=== PATIENT | female | born 1975 | race Caucasian/White ===

== ENCOUNTER 2023-05-24 10:25 | Outpatient (OUT) | payer OTHER, SELFPAY ==
[2023-05-24 11:26] LABS: Estimated Average Glucose 295 mg/dL; Glycohemoglobin A1C 11.9 % (4.5-6.2)
[2023-05-24 11:31] LABS: Bilirubin Urine NEGATIVE (NEGATIVE); Blood Urine NEGATIVE (NEGATIVE); Clarity Urine CLEAR (CLEAR); Color Urine YELLOW (YELLOW); Glucose Urine UA >=1000 mg/dL (NEGATIVE); Ketones Urine NEGATIVE (NEGATIVE); Leukocyte Esterase Urine TRACE (NEGATIVE); Nitrite Urine POSITIVE (NEGATIVE); Protein Urine NEGATIVE (NEG/TRACE); Specific Gravity Urine 1.025 (1.005-1.025)
[2023-05-24 11:41] LABS: Basophils Absolute Auto 0.1 10^3/uL (0.0-0.1); Basophils Percent Auto 0.5 % (0.2-2.0); Eosinophils Absolute Auto 0.2 10^3/uL (0.0-0.7); Hematocrit 42.1 % (36.0-48.0); Hemoglobin 14.2 g/dL (12.0-16.0); Immature Granulocytes Abs Auto 0.05 10^3/uL (0.00-0.03); Immature Granulocytes Pct Auto 0.5 % (0.0-0.5); Lymphocytes Absolute Auto 1.9 10^3/uL (1.2-3.8); Lymphocytes Percent Auto 20.9 % (20.5-60.0); Mean Corpuscular HGB Conc 33.7 g/dL (29.9-35.2); Mean Corpuscular Hemoglobin 29.2 pg (26.7-34.0); Mean Corpuscular Volume 86.6 fL (81.0-99.0); Mean Platelet Volume 10.3 fL (9.5-13.5); Monocytes Absolute Auto 0.6 10^3/uL (0.3-0.8); Monocytes Percent Auto 6.6 % (1.7-12.0); Neutrophils Absolute Auto 6.4 10^3/uL (1.4-6.5); Neutrophils Percent Auto 69.5 % (43.0-75.0); Platelet Count 204 10^3/uL (150-450); Red Blood Count 4.86 10^6/uL (4.20-5.40); Red Cell Distribution Width 12.4 % (11.0-15.0); White Blood Count 9.3 10^3/uL (4.0-11.0)
[2023-05-24 11:46] LABS: Free T4 0.89 ng/dL (0.76-1.46)
[2023-05-24 12:11] LABS: Alanine Aminotransferase 30 U/L (14-59); Albumin Globulin Ratio 0.9; Albumin Level 3.5 g/dL (3.4-5.0); Alkaline Phosphatase 96 U/L (46-116); Anion Gap 12.2; Aspartate Amino Transferase 16 U/L (15-37); BUN Creatinine Ratio 14.1; Bilirubin Total 0.4 mg/dL (0.2-1.0); Calcium 8.7 mg/dL (8.5-10.1); Chloride 99 mmol/L (98-107); Estimated GFR (African America >60 (>=60); Estimated GFR (Non-African Ame >60 (>=60); Globulin 3.9 g/dL; Glucose 289 mg/dL (74-106); Potassium 4.2 mmol/L (3.5-5.1); Sodium 135 mmol/L (136-145); Thyroid Stimulating Hormone 2.265 uIU/mL (0.358-3.740); Total Protein 7.4 g/dL (6.4-8.2)
== END 2023-05-24 10:26 | disposition home or self-care (01) ==
LOC: LAB 10:30
PROVIDERS: PCP Family Medicine; Visit Provider Family Medicine
DX: E11.65 Type 2 diabetes mellitus with hyperglycemia (principal); R53.82 Chronic fatigue, unspecified; R63.4 Abnormal weight loss; R63.0 Anorexia; E03.9 Hypothyroidism, unspecified
CPT/HCPCS: 36415; 80053; 81003; 83036; 84439; 84443; 85025; 87086; 87150; 87186

== ENCOUNTER 2023-10-12 06:33 | Outpatient (OUT) | payer SELFPAY ==
--- NOTE | 2023-10-12 06:51 | US_ITS ---
The [address] [address] Patient Name: JORDON OVALLE MRN: [id number] date: 1975 Sex: F Assigned Patient Location: US Current Patient Location: US Accession/Order Number: [id number] Exam Date: 10/12/2023 07:05 Report Date: 10/12/2023 08:30 At the request of: LYDIA OSWALD Procedure: US thyroid EXAMINATION: US thyroid HISTORY: Hypothyroidism E03.9 COMPARISON: No relevant comparison available. TECHNIQUE: Sonographic images of the thyroid gland were obtained. FINDINGS: The right thyroid lobe is heterogeneous in echotexture measuring 5.5 x 2.0 x 1.7 cm. 3 focal nodules with a single nodule greater than 1 cm. The thyroid isthmus measures 1.3 mm, heterogeneous with no focal nodule The left thyroid lobe is heterogeneous in echotexture measuring 4.8 x 1.6 x 1.5 cm. Single 6 mm nodule. The most suspicious nodule: Right thyroid lobe: 1.1 x 1.0 x 1.1 cm. Solid, hypoechoic, wide, smooth margins, no calcifications. TR 4 US/US thyroid IMPRESSION: Heterogeneous thyroid gland with a 1.1 cm right thyroid TR 4 nodule. One year follow-up recommended TI-RADS: The [employer] TI-RADS committee's white paper recommendations for thyroid lesions classified as TR4 (moderately suspicious) are listed below: > 1.0 cm. Follow-up ultrasound in 1, 2, 3, and 5 years. > 1.5 cm. FNA. J. Am Nicho Radiol 2017;14:587-595. Electronically authenticated by: BREN DENTON Date: 10/12/2023 08:30
[2023-10-12 07:08] LABS: Basophils Absolute Auto 0.1 10^3/uL (0.0-0.1); Basophils Percent Auto 0.8 % (0.2-2.0); Eosinophils Absolute Auto 0.2 10^3/uL (0.0-0.7); Hematocrit 42.5 % (36.0-48.0); Hemoglobin 14.4 g/dL (12.0-16.0); Immature Granulocytes Abs Auto 0.06 10^3/uL (0.00-0.03); Immature Granulocytes Pct Auto 0.6 % (0.0-0.5); Lymphocytes Percent Auto 21.4 % (20.5-60.0); Mean Corpuscular HGB Conc 33.9 g/dL (29.9-35.2); Mean Corpuscular Hemoglobin 29.1 pg (26.7-34.0); Monocytes Absolute Auto 0.6 10^3/uL (0.3-0.8); Monocytes Percent Auto 6.5 % (1.7-12.0); Neutrophils Absolute Auto 6.4 10^3/uL (1.4-6.5); Neutrophils Percent Auto 68.7 % (43.0-75.0); Platelet Count 182 10^3/uL (150-450); Red Blood Count 4.94 10^6/uL (4.20-5.40); Red Cell Distribution Width 12.1 % (11.0-15.0); White Blood Count 9.3 10^3/uL (4.0-11.0)
[2023-10-12 08:00] LABS: Estimated Average Glucose 303 mg/dL; Glycohemoglobin A1C 12.2 % (4.5-6.2)
[2023-10-12 08:11] LABS: BUN Creatinine Ratio 17.2; Calcium 8.9 mg/dL (8.5-10.1); Carbon Dioxide 28.3 mmol/L (21.0-32.0); Chloride 98 mmol/L (98-107); Estimated GFR (African America >60 (>=60); Estimated GFR (Non-African Ame >60 (>=60); Free T4 1.01 ng/dL (0.76-1.46); Glucose 293 mg/dL (74-106); Potassium 4.3 mmol/L (3.5-5.1); Sodium 135 mmol/L (136-145); Thyroid Stimulating Hormone 4.318 uIU/mL (0.358-3.740)
== END 2023-10-12 06:34 | disposition home or self-care (01) ==
LOC: US 06:34
PROVIDERS: PCP Family Medicine; Visit Provider Family Medicine
DX: E03.9 Hypothyroidism, unspecified (principal); E11.65 Type 2 diabetes mellitus with hyperglycemia; E04.1 Nontoxic single thyroid nodule
CPT/HCPCS: 36415; 76536; 80048; 83036; 84439; 84443; 85025

== ENCOUNTER 2024-01-31 07:14 | Outpatient (OUT) | payer OTHER, SELFPAY ==
--- OUTSIDE RECORDS SUMMARY | 2024-01-31 07:17 | XMS_ITS | CCD ---
Author Organization [facility] Care Team Providers Care Service Plumber Name Role Phone Harris Sindy Jackman Attending Provider MARKER, DR LANE Admitting Unavailable MARKER, DR ALNE Attending Unavailable MARKER, DR LANE Consulting Unavailable OSWALD, DR MIRNA Deras Primary Care Unavailable Jozef Brandt Consulting Unavailable KARASIK, DR KAYE Attending Unavailable KARASIK, DR KAYE Admitting Unavailable BABIN, SALVADOR Consulting Unavailable OSWALD, DR MIRNA Deras Primary Care Unavailable KARASIK, DR KAYE Attending Unavailable KARASIK, DR KAYE Consulting Unavailable KARASIK, DR KAYE Admitting Unavailable OSWALD, DR MIRNA Deras Primary Care Unavailable TYLER GA Consulting Unavailable DARWICH, AICHA Consulting Unavailable KARASIK, DR KAYE Attending Unavailable KARASIK, DR KAYE Consulting Unavailable KARASIK, DR KAYE Admitting Unavailable OSWALD, DR MIRNA Deras Primary Care Unavailable PADRONI, DR BREN Hurley Consulting Unavailable KARASIK, DR KAYE Attending Unavailable KARASIK, DR KAYE Consulting Unavailable KARASIK, DR KAYE Admitting Unavailable OSWALD, DR MIRNA Deras Primary Care Unavailable OSWALD, DR MIRNA Deras Attending Unavailable ZIEBER, DR MANI Chambers Consulting Unavailable OSWALD, DR MIRNA Deras Primary Care Unavailable OSWALD, DR MIRNA Deras Admitting Unavailable OSWALD, DR MIRNA Deras Consulting Unavailable ZIEBER, DR MANI Chambers Consulting Unavailable TREY WARE Admelías Unavailable TREY WARE Attending Unavailable DAREK, DR MIRNA Deras Primary Care Unavailable MATA CHRISTINA Consulting Unavailable Inocencia Huitron Unavailable NO FAMILY, PHYSICIAN Primary Care Provider Unava ilable TOÑO Huitron Attending Provider Inocencia Huitron Attending Unavailable Inocencia Huitron Admitting Unavailable NO FAMILY, PHYSICIAN Primary Care Unavailable Mirna Oswald Unavailable FosterCharlotte garcia Unavailable Allergies Allergy Classification Reported Allergen(s) Allergy Type Date of Onset Reaction(s) Facility (1 source) Acetaminophen / oxyCODONE Drug Allergy 10-12-19 15 [facility] Repository (1 source) alogliptin Drug Allergy [facility] Repository (1 source) Angiotensin Converting Enzyme (Jeff) Inhibitors Drug allergy (disorder) [facility] Repository (1 source) Codeine Drug Allergy 05-05-20 13 [facility] Repository (1 source) Linagliptin Drug Allergy [facility] Repository (1 source) Sulfamethoxazole / Trimethoprim Drug Allergy 05-05-20 13 [facility] Repository (7 sources) alogliptin Drug Allergy Unknown [facility] Other (1 source) Angiotensin-convert ing enzyme inhibitor agent Drug allergy 08-06-20 18 Unknown [facility] Other (7 sources) Codeine Drug Allergy dizziness [facility] Other (7 sources) Linagliptin Drug Allergy 08-06-20 18 Unknown [facility] Other (7 sources) sulfADIAZINE Drug Allergy Comment:Sulfa [facility] Other (7 sources) Sulfamethoxazole / Trimethoprim Drug Allergy vomiting [facility] Other (1 source) Allergies Reconciled Propensity to adverse reactions Unknown [facility] Other (7 sources) JEFF inhibitor use, contraindication Propensity to adverse reactions 08-06-20 18 Comment:advers e rxn/side effects [facility] Other (1 source) patient allergy list reviewed by nurse or physicia Propensity to adverse reactions 01-11-20 Comment:Done [facility] Other Medications Current Medications Medication Drug Class(es) Dates Sig (Normalized) Sig (Original) [id number] 60 actuat albuterol 0.09 mg/actuat metered dose inhaler (10 sources) beta2-Adrenergic Agonist Start: 08-07-2023 take 2 puff(s) by inhalation every four to six hours as needed Albuterol Sulfate HFA 108 (90 Base) MCG/ACT 2 puffs as needed Inhalation every 4-6 hours for 14 days Jul, Active Start: 08-07-2023 take 2 puff(s) by in halation every four to six hours as needed Albuterol Sulfate HFA 108 (90 Base) MCG/ACT 2 puffs as needed Inhalation every 4-6 hours for 14 days Jul, Active Start: 04-19-2023 take 2 puff(s) by in halation every four hours as needed for wheezing Albuterol Sulfate HFA 108 (90 Base) MCG/ACT 2 puffs Inhalation every 4 hrs prn SOB, wheezing for 15 days Apr, Active Start: 04-19-2023 take 2 puff(s) by in halation every four hours as needed for wheezing Albuterol Sulfate HFA 108 (90 Base) MCG/ACT 2 puffs Inhalation every 4 hrs prn SOB, wheezing for 15 days Apr, Not-Taking/PRN Start: 04-19-2023 take 2 puff(s) by in halation every four hours as needed for wheezing Albuterol Sulfate HFA 108 (90 Base) MCG/ACT 2 puffs Inhalation every 4 hrs prn SOB, wheezing for 15 days Apr, Not-Taking dextromethorphan hydrobromide 1.5 mg/ml / pyrilamine maleate 1.5 mg/ml oral solution (1 source) Uncompetitive N-qtnyvl-V-aspartate Receptor Antagonist, Sigma-1 Agonist Start: 08-07-2023 take 10 mL by mouth every eight hours [place] DM 7.5-7.5 MG/5ML 10 mL Orally every 8 hours for 5 days Jul, Active imiquimod (1 source) Start: 06-23-2021 Imiquimod 5% Imiquimod 5%, 1 (one) Application Application applied to affected area once daily at bedtime, leave on for 8 hours, then remove with mild soap # 30, 06/23/2021, Ref. x1. Active External applied to affected area once daily at bedtime, leave on for 8 hours, then remove with mild soap for 0 *Pick strength-form from [employer] for eRX* 14 Jun, 2021 Active Insulin Aspart FlexPen (7 sources) Insulin Aspart FlexPen Active 3 ml insulin detemir 100 unt/ml pen injector (7 sources) Insulin Analog Start: 03-16-2023 Levemir FlexPen 100 UNIT/ML 46 units Subcutaneous daily for 30 days Mar, Active Start: 03-16-2023 Levemir FlexPe n 100 UNIT/ML 38 units Subcutaneous daily for 30 days Mar, Active Levemir FlexTouch U-100 Insuln 100 unit/mL(3 mL) (1 source) Start: 07-06-2022 Levemir FlexTo uch U-100 Insuln 100 unit/mL(3 mL) Levemir FlexTouch U-100 Insuln 100 unit/mL(3 mL), 1 (one) Solution Pen-injector 38 units once daily # 1, 07/06/2022, Ref. x2. Active subcutaneous 38 units once daily for 0 [facility]* Jun, Active levothyroxine (11 sources) l-Thyroxi ne Start: 07-13-2022 take 1 tablet by mouth once daily in the morning Levothyroxine 100mcg levothyroxine 100mcg, 1 Tablet every morning # 90, 07/13/2022, No Refill. Active oral every morning for 90 *Reorder from [employer] for eRx and Interaction Alerts* Jul, Active take 1 tablet by paulina th once daily in the morning Levothyroxine Sodium 100 MCG take 1 tabl et by mouth every morning ON AN EMPTY STOMACH for 90 Active take 1 tablet by paulina th once daily in the morning Synthroid 100 MCG 1 tablet in the mornin g on an empty stomach Orally Once a day Active losartan potassium 25 mg oral tablet (8 sources) Angiotensin 2 Receptor Pretty Start: 07-13-2022 take 1 tablet by mouth once daily losartan 25mg losartan 25mg, 1 (one) Tablet daily # 90, 07/13/2022, No Refill. Active oral daily for 90 *[facility]* Jul, Active Naproxen (7 sources) Nonsteroidal Anti-inflammatory Drug Aleve Active ondansetron 4 mg disintegrating oral tablet (2 sources) Serotonin-3 Receptor Antagonist Start: 10-11-2023 take 1 tablet by mouth three times daily as needed Ondansetron 4 MG 1 tablet on the tongue and allow to dissolve Orally tid prn for 5 Oct, Active OneTouch Ultra (1 source) Start: 02-22-2021 OneTouch Ultra OneTouch Ultra , 1 (one) Each Each two times daily # 180, 02/22/2021, Ref. x3. Active In Vitro two times daily for 0 *Pick strength-form from [employer] for eRX* Feb, Active predniSONE 20 mg oral tablet (8 sources) Start: 08-07-2023 take 1 tablet by mouth every twelve hours prednisone 20 MG 1 tablet Orally BID for 5 Jul, Active Start: 04-19-2023 predniSONE 20 MG take 2 tabs po daily x 5 days Orally Once a day for 5 days Apr, Not-Taking/PRN Completed/Discontinued Medications Medication Drug Class(es) Dates Sig (Normalized) Sig (Original) amoxicillin 875 mg / clavulanate 125 mg oral tablet (7 sources) Penicillin-class Antibacterial Start: 08-21-2022 take 1 tablet by mouth twice daily as needed Amoxicillin-Pot Clavulanate 875-125 MG amoxicillin-pot clavulanate 875-125mg, 1 Tablet 2 times per day # 14, 08/21/2022, No Refill. Active Oral 2 times per day for 0 Aug, Not-Taking/PRN benzonatate 200 mg oral capsule (7 sources) Non-narcotic Antitussive Start: 04-19-2023 take 1 capsule by mouth three times daily as needed for cough Benzonatate 200 MG 1 capsule Orally Three times a day prn cough for 10 days Apr, Not-Taking/PRN ciprofloxacin 250 mg oral tablet (6 sources) Quinolone Antimicrobial Start: 05-25-2023 take 1 tablet by mouth every twelve hours Ciprofloxacin HCl 250 MG 1 tablet Orally every 12 hrs for 5 day(s) May, Not-Taking/PRN doxycycline hyclate 100 mg oral capsule (7 sources) Tetracycline-class Drug Start: 03-03-2021 take 2 capsules by mouth once as needed Doxycycline Hyclate 100 MG 2 capsules Orally Once for 1 days Feb, Not-Taking/PRN oseltamivir 75 mg oral capsule (7 sources) Neuraminidase Inhibitor Start: 08-21-2022 take 1 capsule by mouth twice daily as needed Tamiflu 75mg Tamiflu 75mg, 1 Capsule 2 times per day # 10, 08/21/2022, No Refill. Active oral 2 times per day for 5 *Pick strength-form from [employer] for eRX* Aug, Not-Taking/PRN Vitamin D (Cholecalciferol) 50 MCG(1999 UT) (7 sources) Start: 01-07-2021 take 1 capsule by mouth once daily as needed Vitamin D (Cholecalciferol) 50 MCG(1999 UT) Vitamin D (Cholecalciferol) 50 MCG(1999 UT), 1 (one) Capsule Capsule daily # 90, 01/07/2021, Ref. x3. Active Oral daily for 0 *Pick strength-form from [employer] for eRX* 30 Dec, 2020 Not-Taking/PRN Start: 01-07-2021 take 1 capsule by mo uth once daily Vitamin D (Cholecalciferol) 50 MCG(1999 UT) Vitamin D (Cholecalciferol) 50 MCG(1999 UT), 1 (one) Capsule Capsule daily # 90, 01/07/2021, Ref. x3. Active Oral daily for 0 *Pick strength-form from [employer] for eRX* Dec, Not-Taking Problems Active Problems Problem Classification Problem Date Documented Da te Episodic/Chronic Abdominal pain (12 sources) Pelvic and perineal pain; Translations: [Pelvic and perineal pain] Onset: 07-04-2021 Episodic Acute bronchitis (1 source) Acute bronchitis due to other specified organisms Episodic Chronic obstructive pulmonary disease and bronchiectasis (1 source) Chronic obstructive pulmonary disease, unspecified; Translations: [COPD UNSPECIFIED] Onset: 08-29-2021 Chronic Diabetes mellitus with complications (12 sources) Type 2 diabetes mellitus with hyperglycemia; Translations: [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] Onset: 03-09-2021 Chronic Diabetes mellitus without complication (3 sources) Type 2 diabetes mellitus without complications; Translations: [Type 2 diabetes mellitus without complication] Onset: 08-29-2021 Chronic Esophageal disorders (8 sources) Gastro-esophageal reflux disease without esophagitis; Translations: [Gastroesophageal reflux disease] Onset: 08-29-2021 Chronic Esophageal disorders (1 source) Esophageal disorders; Translations: [Gastro-esophageal reflux disease with esophagitis, without bleeding] Essential hypertension (2 sources) Essential (primary) hypertension; Translations: [Essential hypertension] Onset: 08-29-2021 Chronic Headache; including migraine (1 source) Migraine without aura, not refractory ; Translations: [Migraine, unspecified, not intractable, without status migrainosus] Chronic Immunizations and screening for infectious disease (2 sources) Encounter for screening for human papillomavirus (HPV); Translations: [Contact with and (suspected) exposure to other viral communicable diseases] Onset: 07-01-2021 Episodic Joint disorders and dislocations; trauma-related (1 source) Derangement of knee; Translations: [Unspecified internal derangement of knee] Chronic Malaise and fatigue (7 sources) Fatigue; Translations: [Chronic fatigue, unspecified] Chronic Mood disorders (1 source) Recurrent major depression; Translations: [Major depressive disorder, recurrent, unspecified] Chronic Nausea and vomiting (1 source) Nausea with vomiting, unspecified Episodic Nutritional deficiencies (1 source) Vitamin D deficiency; Translations: [Vitamin D deficiency, unspecified] Chronic Other aftercare (1 source) Other detention (current) drug therapy; Translations: [OTH GLOBAL IMPLEMENTATION MANAGER CURRENT DRUG THERAPY] Onset: 08-29-2021 Episodic Other aftercare (1 source) Long-term current use of drug therapy; Translations: [Other detention (current) drug therapy] Episodic Other aftercare (1 source) History and physical examination, follow-up; Translations: [Encounter for follow-up examination after completed treatment for conditions other than malignant neoplasm] Episodic Other gastrointestinal disorders (1 source) Dysphagia; Translations: [Dysphagia, unspecified] Episodic Other inflammatory condition of skin (1 source) Psoriasis; Translations: [Psoriasis, unspecified] Chronic Other liver diseases (1 source) Chronic nonalcoholic liver disease; Translations: [Other chronic nonalcoholic liver disease] Chronic Other nervous system disorders (1 source) Paresthesia; Translations: [Paresthesia of skin] Episodic Other nutritional; endocrine; and metabolic disorders (1 source) Obese class II; Translations: [Body mass index (BMI) 38.0-38.9, adult] Chronic Other nutritional; endocrine; and metabolic disorders (6 sources) Decrease in appetite; Translations: [Anorexia] Episodic Other nutritional; endocrine; and metabolic disorders (1 source) Abnormal weight loss Episodic Other nutritional; endocrine; and metabolic disorders (1 source) Anorexia Episodic Other screening for suspected conditions (not mental disorders or infectious disease) (7 sources) Encounter for screening for malignant neoplasm of cervix; Translations: [Encounter for screening mammogram for malignant neoplasm of breast] Onset: 03-08-2021 Resolved: 06-23-2021 Episodic Other upper respiratory infections (1 source) Chronic sinusitis; Translations: [Chronic sinusitis, unspecified] Chronic Residual codes; unclassified (1 source) Obstructive sleep apnea syndrome; Translations: [Obstructive sleep apnea] Chronic Residual codes; unclassified (1 source) Acquired absence of other specified parts of digestive tract; Translations: [ACQ ABSENCE OTH PART DIGESTV TRACT] Onset: 08-29-2021 Episodic Residual codes; unclassified (1 source) Tobacco user; Translations: [Nondependent tobacco use disorder] Episodic Residual codes; unclassified (1 source) Other general symptoms and signs Episodic Substance-related disorders (1 source) Nicotine dependence, cigarettes, uncomplicated; Translations: [NICOTINE DEPEND CIGARETTES UNCOMP] Onset: 05-23-2021 Chronic Thyroid disorders (12 sources) Hypothyroidism, unspecified; Translations: [Simple goiter] Onset: 08-29-2021 Chronic Unclassified (1 source) Acute cough; Translations: [Acute cough] Onset: 04-19-2023 Urinary tract infections (1 source) Acute cystitis without hematuria Episodic Viral infection (6 sources) Anogenital (venereal) warts; Translations: [Condyloma acuminatum of the anogenital region] Onset: 08-08-2021 Episodic Past or Other Problems Problem Classification Problem Date Documented Da te Episodic/Chronic Anxiety disorders (1 source) Anxiety disorder; Translations: [Anxiety disorder, unspecified] Onset: 08-06-2018 Resolved: 06-22-2021 Chronic E Codes: Natural/environment (1 source) Exposure to other animate mechanical forces, initial encounter; Translations: [EXPOS OTH ANIMATE MECH FORCES INIT] Onset: 03-09-2021 Episodic Headache; including migraine (1 source) Headache; Translations: [Headache, unspecified] Onset: 08-06-2018 Resolved: 06-22-2021 Episodic Lymphadenitis (1 source) Generalized enlarged lymph nodes; Translations: [GENERALIZED ENLARGED LYMPH NODES] Onset: 03-09-2021 Episodic Malaise and fatigue (1 source) Fatigue; Translations: [Other fatigue] Onset: 08-06-2018 Episodic Menstrual disorders (1 source) Amenorrhea; Translations: [Amenorrhea, unspecified] Onset: 08-06-2018 Resolved: 06-22-2021 Chronic Other aftercare (1 source) snf (current) use of insulin; Translations: [GLOBAL IMPLEMENTATION MANAGER CURRENT USE OF INSULIN] Onset: 05-23-2021 Episodic Other lower respiratory disease (3 sources) Cough; Translations: [COUGH] Onset: 05-20-2021 Episodic Other lower respiratory disease (1 source) Shortness of breath; Translations: [SHORTNESS OF BREATH] Onset: 05-23-2021 Episodic Other lower respiratory disease (1 source) Snoring; Translations: [Snoring] Onset: 08-06-2018 Resolved: 06-22-2021 Episodic Other lower respiratory disease (1 source) Cough; Translations: [Cough, unspecified] Onset: 08-06-2018 Resolved: 06-22-2021 Episodic Other non-traumatic joint disorders (1 source) Arthralgia of the lower leg; Translations: [Pain in joint, lower leg] Onset: 08-06-2018 Resolved: 06-22-2021 Episodic Other nutritional; endocrine; and metabolic disorders (1 source) Body mass index 40+ - severely obese; Translations: [Body Mass Index 40.0-44.9, adult] Onset: 08-06-2018 Resolved: 06-22-2021 Chronic Other nutritional; endocrine; and metabolic disorders (1 source) Obesity; Translations: [Obesity, unspecified] Onset: 08-06-2018 Resolved: 06-22-2021 Chronic Other skin disorders (3 sources) Localized swelling, mass and lump, neck; Translations: [LOCALIZED SWELLING MASS AND LUMP NECK] Onset: 03-07-2021 Episodic Other skin disorders (1 source) Alopecia; Translations: [Nonscarring hair loss, unspecified] Onset: 08-06-2018 Resolved: 06-22-2021 Episodic Superficial injury; contusion (1 source) Other superficial bite of unspecified part of neck, initial encounter; Translations: [OTH SUP BITE UNS PART NECK INIT ENC] Onset: 06-30-2021 Episodic Unclassified (1 source) Contact with and (suspected) exposure to covid-19 Z20.822 Unclassified (1 source) Acute cough R05.1 Viral infection (3 sources) COVID-19; Translations: [Disease caused by 2019-nCoV] Onset: 05-23-2021 Results Test Name Value Interpretation Reference Range Facility COVID + FLU Quick Testingon 08-07-2023 SARS-CoV-2 (COVID-19) RNA ANKIT+probe Ql (Unsp spec) Positive [facility] Other COVID + FLU Quick Testing Negative [employer] [facility] Other COVID + FLU Quick Testingon 04-19-2023 SARS-CoV-2 (COVID-19) RNA ANKIT+probe Ql (Unsp spec) Negative [employer] [facility] Other COVID + FLU Quick Testing Negative [employer] Other XR chest 2V*on 04-19-2023 XR chest 2V* [facility] Main [place] [address] [place] [address] XRay Report Signed Patient: Jordon Ovalle MR#: [id number] : 1975 Acct:[id number] Age/Sex: 47 / F ADM Date: 04/19/23 Loc: [facility] Room: Type: [facility] Attending Dr: Inocencia Huitron APRN Copies to: Inocencia Huitron APRN Ordering Provider: Inocencia Huitron APRN Date of Service: 04/19/23 XR/XR chest 2V*: COUGH Chest 2 views CLINICAL HISTORY: Productive cough, shortness of breath, wheezing, night sweats for 5 days. COMPARISON: None FINDINGS: The lung volumes. Heart is normal in size. No consolidation pneumothorax pleural effusion or free air. XR/XR chest 2V* IMPRESSION: NO ACUTE CARDIOPULMONARY ABNORMALITY. Impression dictated by: Jordon Salvador Jr., D.O.04/19/2023 2:53 PM Dictation Location: [place] [address] Transcribed By: [facility] 04/19/23 [facility] Dictated By: Jordon Salvador Jr, DO 04/19/23 1451 Signed By: 04/19/23 1453 Normal [facility] XR chest 2V* [facility] Other XR chest 2V* [facility] Main [facility] [employer] Other XR chest 2V* [address] [facility] [place] Other XR chest 2V* ALICE Baez [address] [facility] [place] Other XR chest 2V* XRay Report [facility] [place] Other XR chest 2V* Signed [facility] [place] Other XR chest 2V* Patient: Jordon Ovalle MR#: [id number] [facility] [place] Other XR chest 2V* : 1975 Acct:[id number] [facility] [place] Other XR chest 2V* Age/Sex: 47 / F ADM Date: 04/19/23 [facility] [place] Other XR chest 2V* Loc: [facility] Room: Ty pe: REG CLI [facility] [place] Other XR chest 2V* Attending Dr: Inocencia Huitron [facility] [employer] Other XR chest 2V* Copies to: Inocencia Huitron APRN [place] [employer] Other XR chest 2V* Ordering Provider: Inocencia Huitron PUBLISHING DIRECTOR [place] [employer] Other XR chest 2V* Date of Service: 04/19/23 [place] [employer] Other XR chest 2V* XR/XR chest 2V*: COUGH [employer] Other XR chest 2V* Chest 2 views [facility] [employer] Other XR chest 2V* CLINICAL HISTORY: Productive cough, shortness of breath, wheezing, night sweats for 5 days. [employer] Other XR chest 2V* COMPARISON: None [employer] Other XR chest 2V* FINDINGS: [employer] Other XR chest 2V* The lung volumes. He art is normal in size. No consolidation pneumothorax pleural effusion or free [employer] Other XR chest 2V* air. [employer] Other XR chest 2V* XR/XR chest 2V* [facility] Other XR chest 2V* IMPRESSION: [employer] Other XR chest 2V* NO ACUTE CARDIOPULMONARY ABNORMALITY. [employer] Other XR chest 2V* Impression dictated by: Jordon Salvador Jr., Billie04/19/2023 2:53 PM [employer] Other XR chest 2V* Dictation Location: [id number] [employer] Other XR chest 2V* Transcribed By: PWS 04/19/23 [facility] [employer] Other XR chest 2V* Dictated By: Jordon Salvador Jr DO 04/19/23 [facility] [employer] Other XR chest 2V* Signed By: [employer] Other XR chest 2V* 04/19/23 [facility] [employer] Other POINT OF CARE GLUCOSEon 07-12 Glucose [Mass/Vol] 193 mg/dL Critically high 74-106 [facility] Comment on above: Performed By: #### P OCGLUC #### [facility] [address] [place] [address] [address] Brock Tovar PREG HCG QUALon 08-08-2021 , QUAL Negative Normal NEGATIVE [facility] Comment on above: Performed By: #### P REG #### [facility] [address] [address] [address] Brock Tovar PROF CHEM 8 (BAS METB)on Anion gap [Moles/Vol] 12.5 mmol/L Normal [facility] Comment on above: Performed By: #### B MP #### [facility] [address] [place] [address] Dr. Brock Tovar Calcium [Mass/Vol] 9.2 mg/dL Normal 8.4-10.2 [facility] Comment on above: Performed By: #### B MP #### [facility] [address] [place] [address] Dr. Brock Tovar Chloride [Moles/Vol] 100 mmol/L Normal 98-107 [facility] Comment on above: Performed By: #### B MP #### [facility] [address] [place] [address] Dr. Brock Tovar CO2 [Moles/Vol] 28.5 mmol/L Normal 22.0-30.0 [facility] Comment on above: Performed By: #### B MP #### [facility] [address] [place] [address] Dr. Brock Tovar Creatinine [Mass/Vol] 0.52 mg/dL Normal 0.52-1.04 [facility] Comment on above: Performed By: #### B MP #### [facility] [address] [place] [address] Dr. Brock Tovar EGFR-AF NICARAGUAN >60 Normal >=[address] [facility] Comment on above: Performed By: #### B MP #### [facility] [address] [place] [address] Dr. Brock Tovar EGFR-NON AF NICARAGUAN >60 Normal >=60 [facility] Comment on above: Performed By: #### B MP #### [facility] [address] [place] [address] Dr. Brock Tovar Glucose [Mass/Vol] 167 mg/dL Critically high 74-106 [facility] Comment on above: Performed By: #### B MP #### [facility] [address] [address] [address] Brock Tovar Potassium [Moles/Vol] 4.0 mmol/L Normal 3.4-5.0 [facility] Comment on above: Performed By: #### B MP #### [facility] [address] [address] [address] Brock Tovar Sodium [Moles/Vol] 137 mmol/L Normal 137-145 [facility] Comment on above: Performed By: #### B MP #### [facility] [address] [address] [address] Brock Tovar Urea nitrogen [Mass/Vol] 11.0 mg/dL Normal 7.0-17.0 [facility] Comment on above: Performed By: #### B MP #### [facility] [address] [address] [address] Brock Tovar Urea nitrogen/Creatini ne [Mass ratio] 21.2 mg/mg Normal [facility] Comment on above: Performed By: #### B MP #### [facility] [address] [address] [address] Brock oTvar US PELVIS AND TRANSVAGon US PELVIS AND TRANSVAG EXAMINATION: US PELVIS AND TRANSVAG HISTORY: Pelvic and perineal pain COMPARISON: No relevant comparison available. FINDINGS: Transabdominal and transvaginal images The uterus is normal in size, contour and echotexture measuring 6.8 x 3.4 x 4.7 cm. Anteverted, anteflexed. Endometrium measures 3 mm, normal. The right ovary is normal in appearance measuring 2.7 x 1.9 x 2.7 cm. Normal resistive index of 0.6. The left ovary is normal in appearance measuring 2.8 x 2.0 x 2.7 cm. Normal resistive index of 0.5. No free fluid IMPRESSION: Normal exam Electronically authenticated by: BREN DENTON Date: 2021-07-04 16:09 Normal [facility] PAP ACOG PANEL 2: 30 to 65on 06-27-2021 . . Normal [facility] Comment on above: Result Comment: Perf ormed at: WB Performed By: #### [id number] #### [facility] [address] [address] [address] Brock Tovar Age Gdln ACOG Testing 30-65 Normal [facility] Comment on above: Performed By: #### [id number] #### [facility] [address] [address] [address] Brock Tovar DIAGNOSIS: Comment Normal [facility] Comment on above: Result Comment: NEGA TIVE FOR INTRAEPITHELIAL LESION OR MALIGNANCY. Performed at: WB Performed By: #### [id number] #### [facility] [address] [address] [address] Brock Tovar HPV Aptima Negative Normal Negative [facility] Comment on above: Result Comment: This nucleic acid amplification test detects fourteen high-risk HPV types (16,18,31,33,35,39,45,51,52,56,58,59,66,68) without differentiation. Performed at: =G Performed By: #### [id number] #### [facility] [address] [address] [address] Brock Toavr Methodology: Comment Normal [facility] Comment on above: Result Comment: This liquid based ThinPrep(R) pap test was screened with the use of an image guided system. Performed at: WB Performed By: #### [id number] #### [facility] [address] [place] [address] Dr. Brock Tovar Note: Comment Normal [facility] Comment on above: Result Comment: The Pap smear is a screening test designed to aid in the detection of premalignant and malignant conditions of the uterine cervix. It is not a diagnostic procedure and should not be used as the sole means of detecting cervical cancer. Both false-positive and false-negative reports do occur. . Performed at: WB Performed By: #### [id number] #### [facility] [address] [address] [address] Brock Tovar Performed by: Comment Normal [facility] Comment on above: Result Comment: Cortez Tolliver, Boat Deckhand (ASCP) Performed at: WB Performed By: #### [id number] #### [facility] [address] [place] [address] Dr. Brock Tovar Specimen adequacy: Comment Normal [facility] Comment on above: Result Comment: Sati sfactory for evaluation. Endocervical and/or squamous metaplastic cells (endocervical component) are present. Performed at: WB Performed By: #### [id number] #### [facility] [address] [place] [address] Dr. Brock Tovar CBC AUTO DIFFon 05-20-2021 BASO # 0.0 103/ul Normal 0.0-0.1 [facility] Comment on above: Performed By: #### C BC #### [facility] [address] [place] [address] Sixto Liv Basophils/100 WBC (Bld) 0.3 % Normal 0.2-2.0 [facility] Comment on above: Performed By: #### C BC #### [facility] [address] [place] [address] Sixto Liv EO # 0.1 103/ul Normal 0.0-0.7 [facility] Comment on above: Performed By: #### C BC #### [facility] [address] [place] [address] Sixto Liv Eosinophils/100 WBC (Bld) 1.4 % Normal 0.9-7.0 [facility] Comment on above: Performed By: #### C BC #### [facility] [address] [place] [address] Sixto Liv Erythrocyte distribution width (RBC) [Ratio] 12.9 % Normal 11.0-15.0 [facility] Comment on above: Performed By: #### C BC #### [facility] [address] [place] [address] Sixto Liv Hematocrit (Bld) [Volume fraction] 41.0 % Normal 36.0-48.0 [facility] Comment on above: Performed By: #### C BC #### [facility] [address] [place] [address] Sixto Liv Hemoglobin (Bld) [Mass/Vol] 13.5 g/dL Normal 12.0-16.0 [facility] Comment on above: Performed By: #### C BC #### [facility] [address] [id number] Sixtotam Peck IG # 0.08 10e3/ul Critically high 0.00-0.03 [facility] Comment on above: Performed By: #### C BC #### [facility] [address] [id number] Sixto Liv IG % 0.8 % Critically high 0.0-0.5 [facility] Comment on above: Performed By: #### C BC #### [facility] [address] [id number] Sixto Liv LYMPH # 1.3 103/ul Normal 1.2-3.8 [facility] Comment on above: Performed By: #### C BC #### [facility] [address] [place] [address] Sixto Peck Lymphocytes/100 WBC (Bld) 12.8 % Critically low 20.5-60.0 [facility] Comment on above: Performed By: #### C BC #### [facility] [address] [place], [place] [id number] Sixto Peck MANUAL DIFF REQ NO Normal [facility] Comment on above: Performed By: #### C BC #### [facility] [address] [place], [place] [id number] Sixtotam Peck MCH (RBC) [Entitic mass] 28.7 pg Normal 26.7-34.0 [facility] Comment on above: Performed By: #### C BC #### [facility] [address] [place], [place] [id number] Sixtotam Peck MCHC (RBC) [Mass/Vol] 32.9 g/dL Normal 29.9-35.2 [facility] Comment on above: Performed By: #### C BC #### [facility] [address] [id number] Sixto Liv MCV (RBC) [Entitic vol] 87.2 fL Normal 81.0-99.0 [facility] Comment on above: Performed By: #### C BC #### [facility] [address] [place], [place] [address] Sixto Liv MONO # 0.7 103/ul Normal 0.3-0.8 [facility] Comment on above: Performed By: #### C BC #### [facility] [address] [place], [place] [address] Sixto Liv Monocytes/100 WBC (Bld) 7.0 % Normal 1.7-12.0 [facility] Comment on above: Performed By: #### C BC #### [facility] [address] [place], [place] [id number] Sixto Liv NEUT # 8.0 103/ul Critically high 1.4-6.5 [facility] Comment on above: Performed By: #### C BC #### [facility] [address] [place], [place] [id number] Sixto Liv Neutrophils/100 WBC (Bld) 77.7 % Critically high 43.0-75.0 [facility] Comment on above: Performed By: #### C BC #### [facility] [address] [place], [place] [id number] Sixto Liv Platelet mean volume (Bld) [Entitic vol] 10.1 fL Normal 9.5-13.5 [facility] Comment on above: Performed By: #### C BC #### [facility] [address] [place], [place] [id number] Sixto Liv PLT 157 103/ul Normal 150-450 [facility] Comment on above: Performed By: #### C BC #### [facility] [address] [place], [place] [id number] Sixto Liv RBC 4.70 106/ul Normal 4.20-5.40 [facility] Comment on above: Performed By: #### C BC #### [facility] [address] [place], [place] [id number] Sixto Liv WBC 10.3 103/ul Normal 4.0-11.0 [facility] Comment on above: Performed By: #### C BC #### [facility] [address] [place], [place] [id number] Sixto Liv D-DIMERon 09-10-2021 D-DIMER 0.48 mg/L FEU Normal 0.19-0.50 [facility] Comment on above: Performed By: #### D DIM #### [facility] [address] [place] [address] Sixto Peck D-DIMER COMMENTS SEE BELOW Normal [facility] Comment on above: Result Comment: Incr eases in D-Dimer concentration observed with thromboembolic events can be variable due to localization, size, and age of the thrombus. Therefore, a thromboembolic event cannot be diagnosed with certainty on the basis of the reference range. D-Dimers may also be elevated for a variety of disorders including: advanced age, , coronary disease, cancer, liver disease, infection, inflammation, hematoma, DIC, trauma, post-surgery, diabetes, thrombolytic or anticoagulant therapy, stress, and generalized hospitalization. Performed By: #### D DIM #### [facility] [address] [place] [address] Sixto Pcek PROF 14(COMP METB)on 021 Albumin [Mass/Vol] 3.5 g/dL Normal 3.5-5.0 [facility] Comment on above: Performed By: #### C BC #### [facility] [address] [place], [place] [id number] Sixto Peck Albumin/Globulin [Mass ratio] 0.9 {ratio} Normal [facility] Comment on above: Performed By: #### C BC #### [facility] [address] [place] [address] Sixto Peck ALP [Catalytic activity/Vol] 100 U/L Normal 38-126 [facility] Comment on above: Performed By: #### C BC #### [facility] [address] [place], [place] [id number] Sixto Peck ALT [Catalytic activity/Vol] 35 U/L Normal 9-52 [facility] Comment on above: Performed By: #### C BC #### [facility] [address] [place] [address] Sixto Peck Anion gap [Moles/Vol] 12.1 mmol/L Normal [facility] Comment on above: Performed By: #### C BC #### [facility] [address] [phone] Sixto Liv AST [Catalytic activity/Vol] 16 U/L Normal 14-36 [facility] Comment on above: Performed By: #### C BC #### [facility] [address] [phone] Sixto Liv Bilirubin [Mass/Vol] 0.4 mg/dL Normal 0.2-1.3 [facility] Comment on above: Performed By: #### C BC #### [facility] [address] [place] [address] Sixto Liv Calcium [Mass/Vol] 8.6 mg/dL Normal 8.4-10.2 [facility] Comment on above: Performed By: #### C BC #### [facility] [address] [place] [address] Sixto Liv Chloride [Moles/Vol] 99 mmol/L Normal 98-107 [facility] Comment on above: Performed By: #### C BC #### [facility] [address] [place], [place] [id number] Sixto Liv CO2 [Moles/Vol] 28.6 mmol/L Normal 22.0-30.[address] [facility] Comment on above: Performed By: #### C BC #### [facility] [address] [place], [place] [id number] Sixto Liv Creatinine [Mass/Vol] 0.60 mg/dL Normal 0.52-1.04 [facility] Comment on above: Performed By: #### C BC #### [facility] [address] [place], [place] [id number] Sixto Liv EGFR-AF NICARAGUAN >60 Normal >=[address] [facility] Comment on above: Performed By: #### C BC #### [facility] [address] [place], [place] [id number] Sixto Liv EGFR-NON AF NICARAGUAN >60 Normal >=60 [facility] Comment on above: Performed By: #### C BC #### [facility] [address] [place], [place] [id number] Sixto Liv Globulin (S) [Mass/Vol] 3.8 g/dL Normal [facility] Comment on above: Performed By: #### C BC #### [facility] [address] [phone] Sixto Liv Glucose [Mass/Vol] 262 mg/dL Critically high 74-106 [facility] Comment on above: Performed By: #### C BC #### [facility] [address] [phone] Sixto Liv Potassium [Moles/Vol] 3.7 mmol/L Normal 3.4-5.0 [facility] Comment on above: Performed By: #### C BC #### [facility] [address] [phone] Sixto Liv Protein [Mass/Vol] 7.3 g/dL Normal 6.1-8.2 [facility] Comment on above: Performed By: #### C BC #### [facility] [address] [place], [place] [id number] Sixto Liv Sodium [Moles/Vol] 136 mmol/L Critically low 137-145 [facility] Comment on above: Performed By: #### C BC #### [facility] [address] [phone] Sixto Liv Urea nitrogen [Mass/Vol] 6.0 mg/dL Critically low 7.0-17.0 [facility] Comment on above: Performed By: #### C BC #### [facility] [address] [place], [place] [id number] Sixto Liv Urea nitrogen/Creatini ne [Mass ratio] 10.0 mg/mg Normal [facility] Comment on above: Performed By: #### C BC #### [facility] [address] [place], [place] [address] Sixto Liv TROPONIN, HIGH SENSITIVITYon 05-20-2021 HSTROP <4.0 Normal 4.0-35.5 [facility] Comment on above: Result Comment: CUT- OFF POINTS HAVE BEEN ESTABLISHED BASED ON THE FOURTH UNIVERSAL DEFINITIONS OF MYOCARDIAL INFARCTION. THE UPPER REFERENCE LIMIT (URL) OF TROPONIN, DEFINED THE 99TH PERCENTILE OF cTnI DISTRIBUTION IN A REFERENCE POPULATION, HAS BEEN CONFIRMED THE DECISION THRESHOLD FOR AR DIAGNOSIS. Performed By: #### C BC #### [facility] [address] [place], [place] [id number] Sixto Liv XR CHEST 1 Von 05-20-2021 XR CHEST 1 V EXAM: XR CHEST 1 V 2021 11:51 PM EDT OH001 CLINICAL STATEMENT: SHORTNESS OF BREATH COMPARISON: 05/01/2020 TECHNIQUE: Single AP radiograph of the chest is submitted. FINDINGS: There is no acute airspace disease. The cardiac silhouette is normal. The costophrenic recesses are sharp. No pneumothorax. The bony elements are unremarkable. IMPRESSION: No acute cardiopulmonary process. FOLLOW-UP: Follow-up as clinically indicated. Electronically authenticated by: JOZEF BRANDT Date: 2021-05-20 01:48 Normal [facility] CBC AUTO DIFFon 03-07-2021 BASO # 0.1 103/ul Normal 0.0-0.1 [facility] Comment on above: Performed By: #### C BC #### [facility] [address] [place] [address] Sixto Liv Basophils/100 WBC (Bld) 0.4 % Normal 0.2-2.0 [facility] Comment on above: Performed By: #### C BC #### [facility] [address] [place] [address] Sixto Liv EO # 0.2 103/ul Normal 0.0-0.7 [facility] Comment on above: Performed By: #### C BC #### [facility] [address] [place] [address] Sixto Liv Eosinophils/100 WBC (Bld) 1.4 % Normal 0.9-7.0 [facility] Comment on above: Performed By: #### C BC #### [facility] [address] [place], [place] [id number] Sixto Liv Erythrocyte distribution width (RBC) [Ratio] 12.5 % Normal 11.0-15.0 [facility] Comment on above: Performed By: #### C BC #### [facility] [address] [place], [place] [address] Sixto Liv Hematocrit (Bld) [Volume fraction] 43.3 % Normal 36.0-48.0 [facility] Comment on above: Performed By: #### C BC #### [facility] [address] [place], [place] [id number] Sixto Peck Hemoglobin (Bld) [Mass/Vol] 14.4 g/dL Normal 12.0-16.0 [facility] Comment on above: Performed By: #### C BC #### [facility] [address] [place], [place] [address] Sixtotam Peck IG # 0.07 10e3/ul Critically high 0.00-0.03 [facility] Comment on above: Performed By: #### C BC #### [facility] [address] [place] [address] Sixto Peck IG % 0.6 % Critically high 0.0-0.5 [facility] Comment on above: Performed By: #### C BC #### [facility] [address] [place] [address] Sixto Peck LYMPH # 2.0 103/ul Normal 1.2-3.8 [facility] Comment on above: Performed By: #### C BC #### [facility] [address] [place] [address] Sixto Peck Lymphocytes/100 WBC (Bld) 16.7 % Critically low 20.5-60.0 [facility] Comment on above: Performed By: #### C BC #### [facility] [address] [place] [address] Sixto Peck MANUAL DIFF REQ NO Normal [facility] Comment on above: Performed By: #### C BC #### [facility] [address] [place], [place] [id number] Sxito Peck MCH (RBC) [Entitic mass] 28.7 pg Normal 26.7-34.0 [facility] Comment on above: Performed By: #### C BC #### [facility] [address] [place] [address] Sixto Peck MCHC (RBC) [Mass/Vol] 33.3 g/dL Normal 29.9-35.2 [facility] Comment on above: Performed By: #### C BC #### [facility] [address] [place], [place] [address] Sixto Peck MCV (RBC) [Entitic vol] 86.4 fL Normal 81.0-99.0 [facility] Comment on above: Performed By: #### C BC #### [facility] [address] [place], [place] [address] Sixto Peck MONO # 0.7 103/ul Normal 0.3-0.8 [facility] Comment on above: Performed By: #### C BC #### [facility] [address] [place], [place] [address] Sixto Peck Monocytes/100 WBC (Bld) 5.7 % Normal 1.7-12.0 [facility] Comment on above: Performed By: #### C BC #### [facility] [address] [id number] Sixto Bowdenen NEUT # 8.9 103/ul Critically high 1.4-6.5 [facility] Comment on above: Performed By: #### C BC #### [facility] [address] [place], [place] [address] Sixto Peck Neutrophils/100 WBC (Bld) 75.2 % Critically high 43.0-75.0 [facility] Comment on above: Performed By: #### C BC #### [facility] [address] [place], [place] [address] Sixto Peck Platelet mean volume (Bld) [Entitic vol] 10.1 fL Normal 9.5-13.5 [facility] Comment on above: Performed By: #### C BC #### [facility] [address] [place], [place] [address] Sixtotam Bowdenen PLT 206 103/ul Normal 150-450 [facility] Comment on above: Performed By: #### C BC #### [facility] [address] [place], [place] [address] Sixto Bowdenen RBC 5.01 106/ul Normal 4.20-5.40 [facility] Comment on above: Performed By: #### C BC #### [facility] [address] [place], [place] [address] Sixto Peck WBC 11.8 103/ul Critically high 4.0-11.[address] [facility] Comment on above: Performed By: #### C BC #### [facility] [address] [place], [place] [address] W CONon CT NECK ST W CON EXAMINATION: CT NECK ST W CON HISTORY: Mass of neck COMPARISON: No relevant comparison available. TECHNIQUE: Axial, Coronal, and Sagittal CT images created with IV contrast. Dose reduction techniques were achieved by using automated exposure control and/or adjustment of mA and/or kV according to patient size and/or use of iterative reconstruction technique. FINDINGS: NASOPHARYNX: No asymmetry of the fossae of Rosenmuller and torus tubarius. ORAL CAVITY: No visible mass. OROPHARYNX: No asymmetry of the facial and lingual tonsils. HYPOPHARYNX: No mass or other visible lesion. LARYNX: No mass or asymmetry of the vocal cords. SINUSES: No significant fluid or mucosal thickening. NECK GLADS: No visible abnormality of the parotid, submandibular, and thyroid glands. LYMPH NODES: Slightly prominent lymph node in within the lateral right neck between the skin and sternocleidomastoid muscle, 13 x 12 x 8 mm, which corresponds to the skin surface marker localizing the patient's palpable lump. VASCULATURE: No suspicious abnormality. BONES: No significant osseous lesions. OTHER: No additional imaging findings. IMPRESSION: 1. Mildly enlarged subcutaneous lymph node of the right neck corresponding to the patient's palpable lump; likely inflamed. No other lymphadenopathy or subcutaneous edema.. Similar location, but smaller lymph node seen on the left side. Electronically authenticated by: MANI MULLINS Date: 2021-03-07 16:14 Normal [facility] PREG HCG QUALon 03-07-2021 , QUAL Negative Normal NEGATIVE [facility] Comment on above: Performed By: #### C BC #### [facility] [address] [place], [place] [address] Sixto Peck PROF CHEM 8 (BAS METB)on Anion gap [Moles/Vol] 15.3 mmol/L Normal [facility] Comment on above: Performed By: #### C BC #### [facility] [address] [address] Sixto Liv Calcium [Mass/Vol] 9.3 mg/dL Normal 8.4-10.2 [facility] Comment on above: Performed By: #### C BC #### [facility] [address] [address] Sixto Liv Chloride [Moles/Vol] 101 mmol/L Normal 98-107 [facility] Comment on above: Performed By: #### C BC #### [facility] [address] [address] Sixto Liv CO2 [Moles/Vol] 26.5 mmol/L Normal 22.0-30.[address] [facility] Comment on above: Performed By: #### C BC #### [facility] [address] [place] [address] Sixto Liv Creatinine [Mass/Vol] 0.65 mg/dL Normal 0.52-1.04 [facility] Comment on above: Performed By: #### C BC #### [facility] [address] [id number] Sixto Liv EGFR-AF NICARAGUAN >60 Normal >=[address] [facility] Comment on above: Performed By: #### C BC #### [facility] [address] [place], [place] [id number] Sixto Liv EGFR-NON AF NICARAGUAN >60 Normal >=60 [facility] Comment on above: Performed By: #### C BC #### [facility] [address] [place] [address] Sixto Liv Glucose [Mass/Vol] 269 mg/dL Critically high 74-106 [facility] Comment on above: Performed By: #### C BC #### [facility] [address] [place], [place] [id number] Sixto Liv Potassium [Moles/Vol] 3.8 mmol/L Normal 3.4-5.0 [facility] Comment on above: Performed By: #### C BC #### [facility] [address] [place] [address] Sixto Liv Sodium [Moles/Vol] 139 mmol/L Normal 137-145 [facility] Comment on above: Performed By: #### C BC #### [facility] [address] [place], [place] [id number] Sixto Liv Urea nitrogen [Mass/Vol] 10.0 mg/dL Normal 7.0-17.0 [facility] Comment on above: Performed By: #### C BC #### [facility] [address] [place], [place] [id number] Sixto Liv Urea nitrogen/Creatini ne [Mass ratio] 15.4 mg/mg Normal [facility] Comment on above: Performed By: #### C BC #### [facility] [address] [place], [place] [id number] Sixto Liv CBC AUTO DIFFon 03-03-2021 BASO # 0.1 103/ul Normal 0.0-0.1 [facility] Comment on above: Performed By: #### C BC #### [facility] [address] [place], [place] [id number] Sixto Liv Basophils/100 WBC (Bld) 0.5 % Normal 0.2-2.0 [facility] Comment on above: Performed By: #### C BC #### [facility] [address] [place], [place] [id number] Sixto Liv EO # 0.2 103/ul Normal 0.0-0.7 [facility] Comment on above: Performed By: #### C BC #### [facility] [address] [place], [place] [id number] Sixto Liv Eosinophils/100 WBC (Bld) 1.9 % Normal 0.9-7.0 [facility] Comment on above: Performed By: #### C BC #### [facility] [address] [place], [place] [id number] Sixto Liv Erythrocyte distribution width (RBC) [Ratio] 12.4 % Normal 11.0-15.0 [facility] Comment on above: Performed By: #### C BC #### [facility] [address] [place], [place] [id number] Sixto Liv Hematocrit (Bld) [Volume fraction] 43.4 % Normal 36.0-48.0 [facility] Comment on above: Performed By: #### C BC #### [facility] [address] [place], [place] [id number] Sixto Peck Hemoglobin (Bld) [Mass/Vol] 14.6 g/dL Normal 12.0-16.0 [facility] Comment on above: Performed By: #### C BC #### [facility] [address] [place], [place] [id number] Sixtotam Peck IG # 0.08 10e3/ul Critically high 0.00-0.03 [facility] Comment on above: Performed By: #### C BC #### [facility] [address] [place] [address] Sixtotam Peck IG % 0.7 % Critically high 0.0-0.5 [facility] Comment on above: Performed By: #### C BC #### [facility] [address] [place] [address] Sixto Liv LYMPH # 1.9 103/ul Normal 1.2-3.8 [facility] Comment on above: Performed By: #### C BC #### [facility] [address] [place] [address] Sixto Peck Lymphocytes/100 WBC (Bld) 17.2 % Critically low 20.5-60.0 [facility] Comment on above: Performed By: #### C BC #### [facility] [address] [place] [address] Sixto Peck MANUAL DIFF REQ NO Normal [facility] Comment on above: Performed By: #### C BC #### [facility] [address] [place] [address] Sixto Peck MCH (RBC) [Entitic mass] 29.0 pg Normal 26.7-34.0 [facility] Comment on above: Performed By: #### C BC #### [facility] [address] [place] [address] Sixtotam Peck MCHC (RBC) [Mass/Vol] 33.6 g/dL Normal 29.9-35.2 [facility] Comment on above: Performed By: #### C BC #### [facility] [address] [place], [place] [address] Sixto Peck MCV (RBC) [Entitic vol] 86.1 fL Normal 81.0-99.0 [facility] Comment on above: Performed By: #### C BC #### [facility] [address] [id number] Sixto Peck MONO # 0.7 103/ul Normal 0.3-0.8 [facility] Comment on above: Performed By: #### C BC #### [facility] [address] [phone] Sixto Peck Monocytes/100 WBC (Bld) 6.3 % Normal 1.7-12.0 [facility] Comment on above: Performed By: #### C BC #### [facility] [address] [phone] Sixtotam Bowdenen NEUT # 8.2 103/ul Critically high 1.4-6.5 [facility] Comment on above: Performed By: #### C BC #### [facility] [address] [phone] Sixto Peck Neutrophils/100 WBC (Bld) 73.4 % Normal 43.0-75.0 [facility] Comment on above: Performed By: #### C BC #### [facility] [address] [phone] Sixto Peck Platelet mean volume (Bld) [Entitic vol] 10.2 fL Normal 9.5-13.5 [facility] Comment on above: Performed By: #### C BC #### [facility] [address] [phone] Sixto Liv PLT 208 103/ul Normal 150-450 [facility] Comment on above: Performed By: #### C BC #### [facility] [address] [phone] Sixto Liv RBC 5.04 106/ul Normal 4.20-5.40 [facility] Comment on above: Performed By: #### C BC #### [facility] [address] [place], [place] [address] Sixto Liv WBC 11.1 103/ul Critically high 4.0-11.[address] [facility] Comment on above: Performed By: #### C BC #### [facility] [address] [place] [address] Sixto Liv FREE T4on 03-03-2021 Free T4 [Mass/Vol] 0.87 ng/dL Normal 0.78-2.19 [facility] Comment on above: Performed By: #### F T4 #### [facility] [address] [place] [address] Sixto Liv H PYLORI ANTIBODYon 03-03-20 21 H PYLORI Negative Normal NEGATIVE [facility] Comment on above: Performed By: #### C BC #### [facility] [address] [place] [address] Sixto Liv LIPID PROFILEon 03-03-2021 CHOL-HDL RATIO NORM SEE BELOW Normal [facility] Comment on above: Result Comment: 3.3 - 4.4 LOW RISK 4.4 - 7.1 AVERAGE RISK 7.1 - 11.0 MODERATE RISK >11.0 HIGH RISK Performed By: #### C MP, TSH, LIPID #### [facility] [address] [place] [address] Sixto Liv Cholesterol [Mass/Vol] 193 mg/dL Normal <=200 [facility] Comment on above: Performed By: #### C MP, TSH, LIPID #### [facility] [address] [place] [address] Sixto Liv Cholesterol in HDL [Mass/Vol] 35 mg/dL Normal [facility] Comment on above: Performed By: #### C MP, TSH, LIPID #### [facility] [address] [place] [address] Sixto Liv Cholesterol in LDL [Mass/Vol] 106.2 mg/dL Normal [facility] Comment on above: Performed By: #### C MP, TSH, LIPID #### [facility] [address] [place] [address] Sixto Liv Cholesterol.total /Cholesterol in HDL [Mass ratio] 5.5 {ratio} Normal [facility] Comment on above: Performed By: #### C MP, TSH, LIPID #### [facility] [address] [place], [place] [address] Sixto Liv HDL NORMAL > or = 60 mg/dl - LO W CARDIOVASCULAR RISK <40 mg/dl - HIGH CARDIOVASCULAR RISK Normal [facility] Comment on above: Performed By: #### C MP, TSH, LIPID #### [facility] [address] [place], [place] [address] Sixto Liv LDL CALC NORMAL SEE BELOW Normal [facility] Comment on above: Result Comment: <100 mg/dl OPTIMAL 100 - 129 mg/dl NEAR OR ABOVE OPTIMAL 130 - 159 mg/dl BORDERLINE HIGH 160 - 189 mg/dl HIGH >190 mg/dl VERY HIGH Performed By: #### C MP, TSH, LIPID #### [facility] [address], [place] [address] Sixto Liv Triglyceride [Mass/Vol] 259 mg/dL Critically high <=150 [facility] Comment on above: Performed By: #### C MP, TSH, LIPID #### [facility] [address] [place], [place] [address] Sixto Liv VLDL CALC 51.8 mg/dL Normal [facility] Comment on above: Performed By: #### C MP, TSH, LIPID #### [facility] [address] [place], [place] [address] Sixto Liv MG MAMM SCREEN 3D SABINO CADon 03-03-2021 MG MAMM SCREEN 3D SAIBNO CAD Patient: JORDON OVALLE Exam Date: 03/03/2021 : 1975 Gender:F Ordering : DR MIRNA OSWALD M.D. Admission #: [id number] Family : Order #: [id number] CLICK HERE TO VIEW EXAM RADIOLOGY REPORT PROCEDURE: MAMMOGRAM SCREENING 3D BILATERAL CAD COMPARISON: MG MAMM SABINO DIAG W CAD, 11/18/2019. MG MAMM SCREEN SABINO W CAD, 11/27/2017. INDICATIONS: Screening mammography Calculator Name NCI Breast Cancer Risk Assessment Tool 5 Year Breast Cancer Risk 1.10% Lifetime Breast Cancer Risk 11.30% Personal Breast Cancer No Personal Ovarian Cancer No Treatments None Family Cancers None LOCATION: [facility] BREAST COMPOSITION: Almost entirely fatty. FINDINGS: DIAGNOSTIC CATEGORY 2--BENIGN FINDING: RIGHT BREAST: No significant suspicious finding. Stable chronic small mass versus lymph node within the posterior upper-outer quadrant. No significant change has occurred. LEFT BREAST: No significant suspicious finding. No significant change has occurred. RECOMMENDATIONS: ROUTINE MAMMOGRAM AND CLINICAL EVALUATION IN 12 MONTHS. PLEASE NOTE: A NORMAL MAMMOGRAM DOES NOT EXCLUDE THE POSSIBILITY OF BREAST CANCER. A CLINICALLY SUSPICIOUS PALPABLE LUMP SHOULD BE BIOPSIED. Dictated by: Mani Mullins M.D. on 03/03/2021 at 15:35 Approved by: Mani Mullins M.D. on 03/03/2021 at 15:38 Normal [facility] PROF 14(COMP METB)on 021 Albumin [Mass/Vol] 3.5 g/dL Normal 3.5-5.0 [facility] Comment on above: Performed By: #### C MP, TSH, LIPID #### [facility] [address] [place], [place] [id number] Sixto Liv Albumin/Globulin [Mass ratio] 0.9 {ratio} Normal [facility] Comment on above: Performed By: #### C MP, TSH, LIPID #### [facility] [address] [place], [place] [address] Sixto Liv ALP [Catalytic activity/Vol] 92 U/L Normal 38-126 [facility] Comment on above: Performed By: #### C MP, TSH, LIPID #### [facility] [address] [place], [place] [address] Sixto Liv ALT [Catalytic activity/Vol] 37 U/L Normal 9-52 [facility] Comment on above: Performed By: #### C MP, TSH, LIPID #### [facility] [address], [place] [address] Sixto Liv Anion gap [Moles/Vol] 13.9 mmol/L Normal [facility] Comment on above: Performed By: #### C MP, TSH, LIPID #### [facility] [address] [place], [place] [address] Sixto Liv AST [Catalytic activity/Vol] 19 U/L Normal 14-36 [facility] Comment on above: Performed By: #### C MP, TSH, LIPID #### [facility] [address] [phone] Sixto Liv Bilirubin [Mass/Vol] 0.4 mg/dL Normal 0.2-1.3 [facility] Comment on above: Performed By: #### C MP, TSH, LIPID #### [facility] [address] [address] Sixto Liv Calcium [Mass/Vol] 9.0 mg/dL Normal 8.4-10.2 [facility] Comment on above: Performed By: #### C MP, TSH, LIPID #### [facility] [address] [place] [address] Sixto Liv Chloride [Moles/Vol] 101 mmol/L Normal 98-107 [facility] Comment on above: Performed By: #### C MP, TSH, LIPID #### [facility] [address] [place] [address] Sixto Liv CO2 [Moles/Vol] 27.2 mmol/L Normal 22.0-30.[address] [facility] Comment on above: Performed By: #### C MP, TSH, LIPID #### [facility] [address] [place] [address] Sixto Liv Creatinine [Mass/Vol] 0.62 mg/dL Normal 0.52-1.04 [facility] Comment on above: Performed By: #### C MP, TSH, LIPID #### [facility] [address] [place] [address] Sixto Liv EGFR-AF NICARAGUAN >60 Normal >=[address] [facility] Comment on above: Performed By: #### C MP, TSH, LIPID #### [facility] [address] [place], [place] [address] Sixto Liv EGFR-NON AF NICARAGUAN >60 Normal >=60 [facility] Comment on above: Performed By: #### C MP, TSH, LIPID #### [facility] [address] [place] [address] Sixto Liv Globulin (S) [Mass/Vol] 4.0 g/dL Normal [facility] Comment on above: Performed By: #### C MP, TSH, LIPID #### [facility] [address] [id number] Sixto Liv Glucose [Mass/Vol] 204 mg/dL Critically high 74-106 [facility] Comment on above: Performed By: #### C MP, TSH, LIPID #### [facility] [address] [place], [place] [address] Sixto Liv Potassium [Moles/Vol] 4.1 mmol/L Normal 3.4-5.0 [facility] Comment on above: Performed By: #### C MP, TSH, LIPID #### [facility] [address] [place] [address] Sixto Liv Protein [Mass/Vol] 7.5 g/dL Normal 6.1-8.2 [facility] Comment on above: Performed By: #### C MP, TSH, LIPID #### [facility] [address] [place] [address] Sixto Liv Sodium [Moles/Vol] 138 mmol/L Normal 137-145 [facility] Comment on above: Performed By: #### C MP, TSH, LIPID #### [facility] [address] [place] [address] Sixto Liv Urea nitrogen [Mass/Vol] 12.0 mg/dL Normal 7.0-17.0 [facility] Comment on above: Performed By: #### C MP, TSH, LIPID #### [facility] [address] [place] [address] Sixto Liv Urea nitrogen/Creatini ne [Mass ratio] 19.4 mg/mg Normal [facility] Comment on above: Performed By: #### C MP, TSH, LIPID #### [facility] [address] [place], [place] [address] Sixto Liv TSHon 03-03-2021 TSH 1.987 uIU/mL Normal 0.470-4.680 [facility] Comment on above: Performed By: #### C MP, TSH, LIPID #### [facility] [address] [place], [place] [address] Sixto Liv TSH RANGE SEE BELOW Normal [facility] Comment on above: Result Comment: <0.3 4 UIU/ml HYPERTHYROID 0.34-5.60 UIU/ml EUTHYROID >5.60 UIU/ml HYPOTHYROID Performed By: #### C MP, TSH, LIPID #### [facility] [address] [place], [place] [address] Sixto Peck Vital Signs Date Time Vital Sign Value Performing Clinician Facility 10-11-2023 09:30-0500 Body height 154.94 cm Mirna Oswald Other [facility] Other 10-11-2023 09:30-0500 Body mass index (BMI) [Ratio] 35.33 kg/m2 Mirna Oswald Other [facility] Other 10-11-2023 09:30-0500 Body weight 84.82 kg Mirna Oswald Other [facility] Other 10-11-2023 09:30-0500 Diastolic blood pressure 81 mm[Hg] Mirna Oswald Other [facility] Other 10-11-2023 09:30-0500 Systolic blood pressure 136 mm[Hg] Mirna Oswald Other [facility] Other 08-07-2023 16:40-0500 Body height 154.94 cm Charlotte Foster Other [facility] Other 08-07-2023 16:40-0500 Body mass index (BMI) [Ratio] 31.14 kg/m2 Charlotte Foster Other [facility] Other 08-07-2023 16:40-0500 Body temperature 98.5 [degF] Charlotte Foster Other [facility] Other 08-07-2023 16:40-0500 Body weight 74.75 kg Charlotte Foster Other [facility] Other 08-07-2023 16:40-0500 Respiratory rate 18 /min Charlotte Foster Other [facility] Other 08-07-2023 16:40-0500 SaO2% (BldA) [Mass fraction] 97 % Charlotte Foster Other [facility] Other 05-24-2023 10:15-0400 Body height 154.94 cm Mirna Oswald Other [facility] Other 05-24-2023 10:15-0400 Body mass index (BMI) [Ratio] 34.23 kg/m2 Mirna Oswald Other [facility] Other 05-24-2023 10:15-0400 Body weight 82.19 kg Mirna Oswald Other [facility] Other 05-24-2023 10:15-0400 Diastolic blood pressure 75 mm[Hg] Mirna Oswald Other [facility] Other 05-24-2023 10:15-0400 Respiratory rate 12 /min Mirna Oswald Other [facility] Other 05-24-2023 10:15-0400 Systolic blood pressure 119 mm[Hg] Mirna Oswald Other [facility] Other 04-19-2023 13:55-0400 Body height 154.94 cm Inocencia Huitron Other [facility] Other 04-19-2023 13:55-0400 Body mass index (BMI) [Ratio] 35.71 kg/m2 Inocencia Huitron Other [facility] Other 04-19-2023 13:55-0400 Body temperature 98.9 [degF] Inocencia Huitron Other [facility] Other 04-19-2023 13:55-0400 Body weight 85.73 kg Inocencia Huitron Other [facility] Other 04-19-2023 13:55-0400 Respiratory rate 18 /min Inocencia Huitron Other [facility] Other 04-19-2023 13:55-0400 SaO2% (BldA) [Mass fraction] 96 % Inocencia Woodley Other [facility] Other Encounters Encounter Date Encounter Type Care Provider Facility Start: 10-11-2023 End: 10-11-2023 ambulatory Mirna Oswald Other [facility] Other Start: 10-11-2023 Office outpatient vi sit 15 minutes Mirna Oswald [facility] Start: 10-11-2023 Telephone encounter Mirna Oswald [facility] Start: 08-07-2023 End: 08-07-2023 ambulatory Charlotte Foster Other [facility] Other Start: 08-07-2023 Office outpatient vi sit 25 minutes Charlotte Foster [facility] Start: 07-13-2023 End: 07-13-2023 ambulatory Mirna Oswald Other [facility] Other Start: 07-13-2023 Telephone encounter Mirna Oswald [facility] Start: 05-25-2023 End: 05-25-2023 ambulatory Mirna Oswald Other [facility] Other Start: 05-25-2023 Telephone encounter Mirna Oswald [facility] Start: 05-24-2023 End: 05-24-2023 ambulatory Mirna Oswald Other [facility] Other Start: 05-24-2023 Office outpatient vi sit 25 minutes Mirna Oswald [facility] Start: 04-19-2023 End: 04-19-2023 Patient encounter procedure PHYSICIAN NO [facility] Work Phone: Start: 04-19-2023 End: 04-19-2023 ambulatory PHYSICIAN NO [facility] Other Start: 04-19-2023 Office outpatient vi sit 15 minutes Inocencia Huitron [facility] Start: 08-12-2021 Encounter for preprocedural laboratory examination DR MIKKI DE LA TORRE [facility] Start: 08-08-2021 End: 08-08-[address] MIKKI DE LA TORRE Facility:[facility] Start: 08-03-2021 End: 08-04-[address] MIKKI DE LA TORRE Facility:[facility] Start: 08-03-2021 End: 08-04-2021 Encounter for preprocedural laboratory examination DR MIKKI DE LA TORRE Facility:[facility] Start: 07-05-2021 End: 07-05-2021 Gynecological examination normal Inocencia Huitron Other [facility] [employer] Other Start: 07-04-2021 End: 07-05-[address] MIKKI DE LA TORRE Facility:[facility] Start: 06-23-2021 End: 06-23-[address] MIKKI DE LA TORRE Facility:[facility] Start: 05-20-2021 End: 05-20-[address] ARIANA ENNIS Facility:[facility] Start: 03-08-2021 Encounter for genera l adult medical examination without abnormal findings DR MIRNA OSWALD [facility] Start: 03-07-2021 End: 03-07-[address] MANI MULLINS Facility:[facility] Start: 03-03-2021 End: 03-03-2021 Departed Referred Sindy Harris Work Phone: [facility] [place] Start: 03-03-2021 End: 03-04-[address] MIRNA OSWALD Facility:[facility] Start: 03-03-2021 End: 03-04-2021 Encounter for general adult medical examination without abnormal findings DR MIRNA OSWALD Facility:[facility] Procedures Date Procedure Procedure Detail Performing Clinician Start: 04-19-2023 Plain chest X-ray PHYSI REINA NO FAMILY Start: 08-06-2018 End: 06-22-2021 Screening mammography Inocencia Huitron Other Screening for malign ant neoplasm of breast [facility] Other Payers Date Payer Category Payer Medicaid [id number] 2. [id number] 2023 Self-pay [id number] 1975 Unknown [id number] 2.16.84 [id number] 1975 Unknown [id number] 2.16.84 [id number] 1975 Unknown [id number] 2.16.84 [id number] 1975 Unknown [id number] 2.16.84 [id number] 1975 Unknown [id number] 2.16.84 [id number] 1975 Unknown [id number] 2.16.84 [id number] 1975 Unknown [id number] 2.16.84 [id number] 1961 Unknown [id number] Unknown [id number] 2.16.8 [id number] Social History Date Type Detail Facility Tobacco smoking status NHIS Unknown if ever smoked [facility] Start: 1975 Sex Assigned At Female F [facility] Sex Assigned At Sex Assigned At Bir th [facility] Other Medical Equipment Procedure Code Equipment Code Equipment Origin al Text Equipment Identifier Dates Start: 02-21-2022 Evaluation note 10-11-2023 Note Date & Type Note Facility 10-11-2023 Evaluation note Encounter Date Diagnosis Assessment Notes Oct, Type 2 diabetes mellitus with hyperglycemia, unspecified whether moth exterminator insulin use (ICD-10 - E11.65) Pt requests referral to Dr. Weinstein for further help w diabetes. Oct, Acquired hypothyroidism (ICD-10 - E03.9) Due for labs and US Oct, Nausea and vomiting in adult (ICD-10 - R11.2) Zofran for short term use. Discussed likely related to her elevated glucose. [facility] Other Evaluation note 08-07-2023 Note Date & Type Note Facility 08-07-2023 Evaluation note Encounter Date Diagnosis Assessment Notes Jul, Suspected COVID-19 virus infection (ICD-10 - R68.89) Jul, COVID-19 (ICD-10 - U07.1) Rapid COVID test performed in office today. Advised patient that test was positive. Influenza A/B test negative. Instructed patient to isolate per CDC guidelines for 5 days from symptom onset, mask 5 days following. May return to work/activities outside home after isolation period as long as symptoms are improving and has been afebrile for 24 hours without use of antipyretic. Advised patient that treatment of COVID is with viral supportive care, rx of prednisone, [place], and Albuterol inhaler as directed, Tylenol as needed for body aches/fever. Increase fluids and rest. Encouraged use of cool mist humidifier. Follow-up with PCP to advise of positive result and further management. Immediate eval for SOB, difficulty, chest pain, fevers that do not break with antipyretic or any other concerning symptoms as reviewed on patient education handout. Patient verbalizes understanding and is agreeable to treatment plan. Patient left in stable condition [facility] Other Evaluation note 05-24-2023 Note Date & Type Note Facility 05-24-2023 Evaluation note Encounter Date Diagnosis Assessment Notes May, Chronic fatigue (ICD-10 - R53.82) Discussed differential . Will check labs today. May, Weight loss (ICD-10 - R63.4) Discussed differential . Will check labs today. May, Decreased appetite (ICD-10 - R63.0) Discussed differential . Will check labs today. May, Type 2 diabetes mellitus with hyperglycemia, unspecified whether detention insulin use (ICD-10 - E11.65) Diabetes typically uncontrolled . Refused to see Vance Yañez in the past. Obtain a1C May, Acquired hypothyroidism (ICD-10 - E03.9) Chronic problem, due for labs. May, Screening mammogram for breast cancer (ICD-10 - Z12.31) May, Acute cystitis without hematuria (ICD-10 - N30.00) Check UA w culture. [facility] Other Evaluation note 04-19-2023 Note Date & Type Note Facility 04-19-2023 Evaluation note Encounter Date Diagnosis Assessment Notes Apr, Contact with and (suspected) exposure to covid-19 (ICD-10 - Z20.822) Negative rapid COVID and flu. Apr, Acute viral bronchitis (ICD-10 - J20.8) Discussed with patient exam is consistent with viral bronchitis. Negative chest x-ray. Will treat with 5-day prednisone burst, as needed albuterol inhaler. Will also treat with Tessalon Perles for cough. Discussed typical duration of bronchitis, sometimes cough can linger for 2 to 4 weeks. Discussed unfortunately antibiotics do not treat viral bronchitis. Should follow-up with PCP if not gradually improving over the next 10 to 14 days, sooner if significantly worsening, persistent fever. Patient verbalized understanding of treatment plan. Discussed prednisone can raise blood sugars, closely monitor blood sugars and diet. Apr, Acute cough (ICD-10 - R05.1) Chest x-ray negative [facility] Other Evaluation note Note Date & Type Note Facility Evaluation note No assessment information [facility] Evaluation note Note Date & Type Note Facility Evaluation note No Information [facility] Other History general Narrative - Reported Note Date & Type Note Facility History general Narrative - Reported Type Medical History Diabetes Medical History diabetes mallitus Medical History Hypothyroid Medical History HTN (hypertension) Surgical History cholecystectomy Hospitalization History see above [facility] Other Summary Purpose Family History No Family History Records FoundNo Family History Records Found Advance Directives Advance Directive Response Recorded Date/ Time Advance Directives No March 05 12:23pm Reason for Referral Reason *FU 10/18 Will hav e our nurse call as well. Type 2 diabetes, hyperglycemia. Diagnosis 1 Type 2 diabetes bryant itus with hyperglycemia, unspecified whether moth exterminator insulin use (E11.65) Referral Organization [facility] Referring Provider First Name Mirna Referring Provider Last Name Darek Referring Provider Specialty Family [facility]ine Referred Organization [facility] Referred Provider Teresa Snow Referred Address ,[place], [place],[address] Referred Provider Specialty Family Medic ine Referral Priority Routine General Notes Melanie Red 10:27:46 AM >received today, notes locked, attachments made, referral faxed. marked it as urgent when faxed Additional Source Comments Goals (unrecognized section and content) Goals may be documented in a n alternate sectionNo InformationGoals may be documented in an alternate sectionNo InformationNo InformationNo InformationNo InformationNo InformationNo Information INFORMATION SOURCE (unrecogn ized section and content) DATE CREATED AUTHOR 08/30/2021 [facility] DATE CREATED AUTHOR AUTHOR'S ORGANIZ ATION 04/28/2023 [facility] REASON FOR VISIT (unrecogniz ed section and content) CONGESTION, CHEST AND BACKla bsLOSING WEIGHT - wanting labs checkedrefillCOVID TEST CONGESTION, CHEST, FATIGUE, CHILLSdiabetic check - general weakness - covid negative last weekdiabetes specialist Care Teams (unrecognized sec tion and content) Team Status: Active Member Role Status Dates PHYSICIAN NO FAMILY Primary Care Provider Active Team Status: Inactive Member Role Status Dates PHYSICIAN NO FAMILY Primary Care Provider Active Inocencia Huitron , PUBLISHING DIRECTOR Attending Provider Active FOR RECORDS PERTAINING TO PATIENTS WHO ARE OR HAVE BEEN ENROLLED IN A CHEMICAL DEPENDENCY/SUBSTANCEABUSE PROGRAM, SOME INFORMATION MAY BE OMITTED. This clinical summary was aggregated from multiple sources. Caution should be exercised in using it in the provision of clinical care. This summary normalizes information from multiple sources, and as a consequence, information in this document may materially change the coding, format and clinical context of patient data. In addition, data may be omitted in some cases. CLINICAL DECISIONS SHOULD BE BASED ON THE PRIMARY CLINICAL RECORDS. [employer] [facility]. provides no warranty or guarantee of the accuracy or completeness of information in this document.
[2024-01-31 08:10] LABS: Creatinine Urine Random 97.03 mg/dL (20.00-300.00); Microalbum Creatinine Ratio Ur 25.7 mg/g (0.0-29.9); Microalbumin Urine Random 2.5 mg/dL (<=30.0)
[2024-01-31 10:59] LABS: Albumin Level 3.5 g/dL (3.4-5.0); Anion Gap 13.5; BUN Creatinine Ratio 18.2; Calcium 9.4 mg/dL (8.5-10.1); Carbon Dioxide 26.6 mmol/L (21.0-32.0); Chloride 100 mmol/L (98-107); Chol HDL Ratio 5.9; Cholesterol 219 mg/dL (<=200); Estimated GFR (African America >60 (>=60); Estimated GFR (Non-African Ame >60 (>=60); Glucose 268 mg/dL (74-106); HDL Cholesterol 37 mg/dL (40-60); Potassium 4.1 mmol/L (3.5-5.1); Sodium 136 mmol/L (136-145); Triglycerides 211 mg/dL (<=150); VLDL CHOLESTEROL 42.2 mg/dL
[2024-01-31 11:45] LABS: Phosphorus 3.6 mg/dL (2.6-4.7)
== END 2024-01-31 07:15 | disposition home or self-care (01) ==
LOC: LAB 07:15
PROVIDERS: PCP Family Medicine; Visit Provider Internal Medicine
DX: I10 Essential (primary) hypertension (principal); E11.65 Type 2 diabetes mellitus with hyperglycemia; Z79.4 Long term (current) use of insulin; Z71.3 Dietary counseling and surveillance
CPT/HCPCS: 36415; 80061; 80069; 82043; 82306; 82570; 84681

== ENCOUNTER 2024-08-04 10:50 | Outpatient (OUT) | payer MEDICAID, SELFPAY ==
--- NOTE | 2024-08-04 10:52 | MM_ITS ---
Patient Name: JORDON OVALLE MR#: [id number] : 1975 Exam Date: 08/04/2024 Ordering Doctor: DR Mirna Barnett M.D. RADIOLOGY REPORT PROCEDURE: MM TOMOSYNTHESIS SCREENING BI COMPARISON: MG MAMM SCREEN 3D SABINO CAD, 03/03/2021. MG MAMM [place] DIAG W CAD, 11/18/2019. MG MAMM SCREEN SABINO W CAD, 11/27/2017. MG MAMM S[place]INO SCRN W CAD DIG, 01/29/2015. INDICATIONS: Screening for malignant neoplasm Calculator Name [facility] Breast Cancer Risk Assessment Tool 5 Year Breast Cancer Risk 1.20% Lifetime Breast Cancer Risk 10.60% Personal Breast Cancer No Personal Ovarian Cancer No Treatments None Family Cancers None LOCATION: [facility] BREAST COMPOSITION: The breasts are almost entirely fatty. FINDINGS: DIAGNOSTIC CATEGORY 2--BENIGN FINDING: RIGHT BREAST: No significant suspicious finding. Stable chronic lymph node versus nodule within posterior upper-outer quadrant. No significant change has occurred. LEFT BREAST: No significant suspicious finding. No significant change has occurred. RECOMMENDATIONS: ROUTINE MAMMOGRAM AND CLINICAL EVALUATION IN 12 MONTHS. PLEASE NOTE: A NORMAL MAMMOGRAM DOES NOT EXCLUDE THE POSSIBILITY OF BREAST CANCER. A CLINICALLY SUSPICIOUS PALPABLE LUMP SHOULD BE BIOPSIED. Dictated by: Mani Mullins M.D. on 08/05/2024 at 15:04 Approved by: Mani Mullins M.D. on 08/05/2024 at 15:08
--- NOTE | 2024-08-04 10:52 | US_ITS ---
The [address] [address] Patient Name: JORDON OVALLE MRN: [id number] date: 1975 Sex: F Assigned Patient Location: [facility] Current Patient Location: Accession/Order Number: [id number] Exam Date: 08/04/2024 11:00 Report Date: 08/05/2024 06:58 At the request of: LYDAI OSWALD Procedure: US thyroid EXAMINATION: US thyroid HISTORY: thyroid nodule COMPARISON: Ultrasound thyroid 10/12/2023 FINDINGS: RIGHT LOBE: Heterogeneous enlarged thyroid gland containing an incidental 6 cm colloid cyst. Previously seen large nodule is not appreciable on today's study. Lobe size: 5.7 x 2.0 x 1.5 cm LEFT LOBE: Heterogeneous thyroid gland containing a 7 mm TR 4 nodule within mid body; unchanged. Lobe size: 4.4 x 1.4 x 1.2 cm ISTHMUS: Heterogeneous and thickened. Thickness: 9 mm US/US thyroid IMPRESSION: 1. No overtly suspicious findings warranting additional follow-up at this time. TR4 (moderately suspicious): If > 1.0 cm, follow-up ultrasound in 1, 2, 3, and 5 years. If > 1.5 cm, fine needle aspiration (FNA). Electronically authenticated by: DOMINIQUE COKER Date: 08/05/2024 06:58
--- OUTSIDE RECORDS SUMMARY | 2024-08-04 10:57 | XMS_ITS | CCD ---
Author Organization [facility] Care Team Providers Care Forensic Locksmith Name Role Phone Sindy Harris Attending Provider MARKER, DR LANE Admitting Unavailable MARKER, DR LANE Attending Unavailable MARKER, DR LANE Consulting Unavailable OSWALD, DR MIRNA Deras Primary Care Unavailable Karly, Jozef Consulting Unavailable KARASIK, DR KAYE Attending Unavailable KARASIK, DR KAYE Admitting Unavailable BABIN, SALVADOR Consulting Unavailable OSWALD, DR MIRNA Deras Primary Care Unavailable KARASIK, DR KAYE Attending Unavailable KARASIK, DR KAYE Consulting Unavailable KARASIK, DR KAYE Admitting Unavailable OSWALD, DR MIRNA Deras Primary Care Unavailable HARMEET, TYLER Consulting Unavailable DARWICH, AICHA Consulting Unavailable KARASIK, DR KAYE Attending Unavailable KARASIK, DR KAYE Consulting Unavailable KARASIK, DR KAYE Admitting Unavailable OSWALD, DR MIRNA Deras Primary Care Unavailable HUNGRY HORSE, DR BREN Hurley Consulting Unavailable KARASIK, DR [...] DR MANI Chambers Consulting Unavailable TREY WARE Admitting Unavailable TREY WARE Attending Unavailable DAREK, DR MIRNA Deras Primary Care Unavailable MATA CHRISTINA Consulting Unavailable Inocencia Huitron Unavailable NO FAMILY, PHYSICIAN Primary Care Provider Unava ilable TOÑO Huitron Attending Provider Inocencia Huitron Attending Unavailable Inocencia Huitron Admitting Unavailable NO FAMILY, PHYSICIAN Primary Care Unavailable Mirna Oswald Unavailable Charlotte Foster Unavailable JASON GRANDA Attending Unavailable Mirna Oswald MD Primary Care Provider [phone] Allergies Allergy Classification Reported Allergen(s) Allergy Type Date of Onset Reaction(s) Facility (1 source) Acetaminophen / oxyCODONE Drug Allergy 10-12-19 15 [facility] (1 source) alogliptin Drug Allergy [facility] (1 source) Angiotensin Converting Enzyme (Jeff) Inhibitors Drug allergy (disorder) [facility] (2 sources) Codeine Drug Allergy 05-05-20 13 dizziness [facility] (1 source) Linagliptin Drug Allergy [facility] (1 source) Sulfamethoxazole / Trimethoprim Drug Allergy 05-05-20 13 [facility] (8 sources) alogliptin Drug Allergy 07-21-20 24 Unknown, [facility] (1 source) Angiotensin-convert ing enzyme inhibitor agent Drug allergy 08-06-20 18 Unknown [facility] Other (7 sources) Codeine Drug Allergy dizziness [facility] Other (8 sources) Linagliptin Drug Allergy 08-06-20 18 Unknown, [facility] Comment on above: Onset Date: 08/06/20 18 (8 sources) sulfADIAZINE Drug Allergy 07-21-20 Comment:[facility] (11 sources) Sulfamethoxazole / Trimethoprim Drug Allergy 05-19-20 vomiting [facility] Other (1 source) Allergies Reconciled Propensity to adverse reactions Unknown [facility] Other (7 sources) JEFF inhibitor use, contraindication Propensity to adverse reactions 08-06-20 18 Comment:advers e rxn/side effects [facility] Other (1 source) patient allergy list reviewed by nurse or physicia Propensity to adverse reactions 01-11-20 Comment:Done [facility] Other (4 sources) alogliptin Drug Allergy 05-19-20 [facility] (4 sources) Codeine Drug Allergy 05-19-20 Other [facility] (4 sources) Linagliptin Drug Allergy 05-19-20 24 [facility] (4 sources) Sulfonamides (Antibiotic) Drug Allergy 05-19-20 24 Other [facility] (1 source) Sulfamethoxazole Drug Allergy 07-21-20 24 [facility] (1 source) Trimethoprim Drug Allergy 07-21-20 [facility] Medications Current Medications Medication Drug Class(es) Dates Sig (Normalized) Sig (Original) [id number] 60 actuat albuterol 0.09 mg/actuat metered dose [...] SOB, wheezing for 15 days Apr, Not-Taking atorvastatin 20 mg oral tablet (4 sources) HMG-CoA Reductase Inhibitor take 1 tablet by mouth once daily atorvastatin (Lipitor) 20 MG tablet Take 20 mg by mouth Daily Active dextromethorphan hydrobromide 1.5 mg/ml / pyrilamine maleate 1.5 mg/ml oral solution (1 source) Uncompetitive N-vfohli-G-aspartate Receptor Antagonist, Sigma-1 Agonist Start: 023 take 10 mL by mouth every eight hours [place] DM 7.5-7.5 MG/5ML 10 mL Orally every 8 hours for 5 days Jul, Active ergocalciferol 0.01 mg oral tablet (5 sources) Provitamin D2 Compound Start: 024 take 1 tablet by mouth once daily Ergocalciferol (Vitamin D2) 10 mcg (400 unit) tablet Active 10 MCG PO Daily July 21, 2024 12:00am take 1 capsule by mouth every we ek ergocalciferol (Vitamin D-2) 1.25 MG (96768 UT) capsule Take 1.25 mg by mouth 1 (one) time per week Active imiquimod (1 source) Start: 06-23-2021 Imiquimod 5% Imiquimod 5%, 1 (one) Application Application applied to affected area once daily at bedtime, leave on for 8 hours, then remove with mild soap # 30, 06/23/2021, Ref. x1. Active External applied to affected area once daily at bedtime, leave on for 8 hours, then remove with mild soap for 0 *Pick strength-form from [employer] for eRX* 14 Jun, 2021 Active Insulin Aspart FlexPen (7 sources) Insulin Aspart FlexPen Active insulin detemir 100 unt/ml injectable solution (12 sources) Insulin Analog Start: 07-16-2024 End: 07-19-2024 inject 46 [IU] by subcutaneous injection once daily Levemir 100 UNIT/ML injection Indications: Diabetic neuropathy with neurologic complication (CMS/HCC) INJECT 46 UNITS SUBCUTANEOUSLY (UNDER THE SKIN) DAILY 40 mL 07/19/2024 Active Start: 03-16-2023 Levemir FlexPe n 100 UNIT/ML 46 units Subcutaneous daily for 30 days Mar, Active Start: 03-16-2023 Levemir FlexPe n 100 UNIT/ML 38 units Subcutaneous daily for 30 days Mar, Active Insulin Detemir U-100 (Levemir Flexpen) 100 unit/mL (3 mL) insulin pen (1 source) Start: 07-17-2024 Insulin Detemi r U-100 (Levemir Flexpen) 100 unit/mL (3 mL) insulin pen Active 40 UNIT SUBCUT Daily at bedtime 15 July 17, 2024 12:00am 3 ml insulin lispro 100 unt/ml pen injector (4 sources) Insulin Analog Start: 06-03-2024 End: 09-01-2024 insulin lispro (HumaLOG) 100 UNIT/ML injection Inject 20 Units under the skin in the morning and 20 Units at noon and 20 Units in the evening. Inject with meals. 18 mL 2 06/03/2024 09/01/2024 Active Insulin Lispro (Humalog Kwikpen Insulin) 100 unit/mL insulin pen (1 source) Start: 07-21-2024 Insulin Lispro (Humalog Kwikpen Insulin) 100 unit/mL insulin pen Active 1 sliding scale dose SUBCUT Use as Directed July 21, 2024 12:00am Levemir FlexTouch U-100 Insuln 100 unit/mL(3 mL) (1 source) Start: 07-06-2022 Levemir FlexTo uch U-100 Insuln 100 unit/mL(3 mL) Levemir FlexTouch U-100 Insuln 100 unit/mL(3 mL), 1 (one) Solution Pen-injector 38 units once daily # 1, 07/06/2022, Ref. x2. Active subcutaneous 38 units once daily for 0 *Reorder from [employer] for eRx and Interaction Alerts* Jun, Active levothyroxine sodium 0.1 mg oral tablet (15 sources) l-Thyroxine Start: 07-16-2024 End: 10-14-2024 take 1 tablet by mouth before mealtime levothyroxine (Synthroid, Levoxyl) 100 MCG tablet Indications: Acquired hypothyroidism (CMS/HCC) Take 1 tablet (100 mcg) by mouth in the morning. Take before meals. 90 tablet 07/16/2024 10/14/2024 Active Start: 07-13-2022 take 1 tablet by paulina th once daily in the morning Levothyroxine 100mcg levothyroxine 100mcg, 1 Tablet every morning # 90, 07/13/2022, No Refill. Active oral every morning for 90 *Reorder from [employer] for eRx and Interaction Alerts* Jul, Active take 1 tablet by paulnia th once daily in the morning Synthroid 100 MCG 1 tablet in the morning on an empty stomach Orally Once a day Active Naproxen (7 sources) Nonsteroidal Anti-inflammatory Drug Aleve Active OneTouch Ultra (1 source) Start: 02-23-20 21 OneTouch Ultra OneTouch Ultra , 1 (one) Each Each two times daily # 180, 02/22/2021, Ref. x3. Active In Vitro two times daily for 0 *Pick strength-form from [employer] for eRX* 15 Feb, 2021 Active pioglitazone 30 mg oral tablet (5 sources) Peroxisome Proliferator Receptor alpha Agonist, Peroxisome Proliferator Receptor gamma Agonist, Thiazolidinedione Start: 06-03-20 End: 06-03-20 take 1 tablet by mouth once daily Pioglitazone 30 mg tablet Active 30 MG PO Daily July 21, 2024 12:00am predniSONE 20 mg oral tablet (8 sources) Start: 08-07-20 take 1 tablet by mouth every twelve hours prednisone 20 MG 1 tablet Orally BID for 5 Jul, Active Start: 04-19-2023 predniSONE 20 MG take 2 tabs po daily x 5 days Orally Once a day for 5 days Apr, Not-Taking/PRN sertraline 25 mg oral tablet (1 source) Serotonin Reuptake Inhibitor Start: 07-21-2024 take 1 tablet by mouth once daily Sertraline 25 mg tablet Active 25 MG PO Daily July 21, 2024 12:00am Completed/Discontinued Medications Medication Drug Class(es) Dates Sig [...] Aug, Not-Taking/PRN benzonatate 200 mg oral capsule (8 sources) Non-narcotic Antitussive Start: 01-16-2024 End: 07-21-2024 take 1 capsule by mouth three times daily as needed for cough Benzonatate 200 mg capsule Discontinued MG PO January 15, 2024 11:00pm July 21, 2024 1:13pm [employer] capsule Orally Three times a day prn cough; Note: Source Status: Not-Takingundefine dPRN; Refills: 0; Qty: 30 capsule; Provider: Elana Pro Start: 04-19-2023 take 1 capsule by mo uth three times daily as needed for cough Benzonatate 200 MG 1 capsule Orally Three times a day prn cough for 10 days Apr, Not-Taking/PRN cholecalciferol 0.05 mg oral tablet (1 source) Vitamin D Start: 01-16-2024 End: 07-21-2024 take 1 tablet by mouth once daily Cholecalciferol (Vitamin D3) 50 mcg (2,000 unit) tablet Discontinued 50 MCG PO Daily January 15, 2024 11:00pm July 21, 2024 1:13pm ciprofloxacin 250 mg oral tablet (6 sources) Quinolone Antimicrobial Start: 05-25-2023 take 1 tablet by mouth every twelve hours Ciprofloxacin HCl 250 MG 1 tablet Orally every 12 hrs for 5 day(s) May, Not-Taking/PRN doxycycline hyclate 100 mg oral capsule (8 sources) Tetracycline-class Drug Start: 01-16-2024 End: 07-21-2024 take 2 capsules by mouth once Doxycycline Hyclate 100 mg capsule Discontinued MG PO January 15, 2024 11:00pm July 21, 2024 1:13pm [employer] capsules Orally Once; Note: Source Status: Not-Takingundefined PRN; Refills: 0; Qty: 2 Capsule; Provider: Steven Jackman Start: 03-03-2021 take 2 capsules by m outh once as needed Doxycycline Hyclate 100 MG 2 capsules Orally Once for 1 days Feb, Not-Taking/PRN losartan potassium 25 mg oral tablet (14 sources) Angiotensin 2 Receptor Pretty Start: 07-13-2022 End: 07-16-2024 take 1 tablet by mouth once daily Losartan 25 mg tablet Discontinued 1 TAB PO Daily January 15, 2024 11:00pm July 16, 2024 11:33am Free[employer]Sig: take 1 tablet by mouth once daily; Note: Source Status: Start; Refills: 0; Qty: 90 Tablet; Provider: Darek Bradley ( ) ondansetron 4 mg disintegrating oral tablet (3 sources) Serotonin-3 Receptor Antagonist Start: 01-16-2024 End: 07-21-2024 take 1 tablet by mouth three times daily as needed Ondansetron 4 mg tablet,disintegrat ing Discontinued 1 TAB PO Three times daily January 15, 2024 11:00pm July 21, 2024 1:13pm [employer] tablet on the tongue and allow to dissolve Orally tid prn; Note: Source Status: Start; Provider: Darek Deras Start: 10-11-2023 take 1 tablet by paulina three times daily as needed Ondansetron 4 MG 1 tablet on the tongue and allow to dissolve Orally tid prn for 5 Oct, Active oseltamivir 75 mg oral capsule (7 sources) Neuraminidase Inhibitor Start: 08-21-2022 take 1 capsule by mouth twice daily as needed Tamiflu 75mg Tamiflu 75mg, 1 Capsule 2 times per day # 10, 08/21/2022, No Refill. Active oral 2 times per day for 5 *Pick strength-form from [employer] for eRX* Aug, Not-Taking/PRN Vitamin D (Cholecalciferol) 50 MCG(2000 UT) (7 sources) Start: 01-07-2021 take 1 capsule by mouth once daily as needed Vitamin D (Cholecalciferol) 50 MCG(2000 UT) Vitamin D (Cholecalciferol) 50 MCG(2000 UT), 1 (one) Capsule Capsule daily # 90, 01/07/2021, Ref. x3. Active Oral daily for 0 *Pick strength-form from [employer] for eRX* Dec, Not-Taking/PRN Start: 01-07-2021 take 1 capsule by mo [facility] once daily Vitamin D (Cholecalciferol) 50 MCG(2000 UT) Vitamin D (Cholecalciferol) 50 MCG(2000 UT), 1 (one) Capsule Capsule daily # 90, 01/07/2021, Ref. x3. Active Oral daily for 0 *Pick strength-form from [employer] for eRX* Dec, Not-Taking Problems Active Problems Problem Classification Problem Date Documented Da te Episodic/Chronic Abdominal pain (12 sources) Pelvic and perineal pain; Translations: [Pelvic and perineal pain] Onset: 07-04-2021 Episodic Acute bronchitis (1 source) Acute bronchitis due to other specified organisms Episodic Administrative/social admission (4 sources) Patient encounter status; Translations: [Dietary counseling and surveillance] Onset: 2024 2024 Episodic Chronic obstructive pulmonary disease and bronchiectasis (1 source) Chronic obstructive pulmonary disease, unspecified; Translations: [COPD UNSPECIFIED] Onset: 08-29-2021 Chronic Diabetes mellitus with complications (17 sources) Type 2 diabetes mellitus with hyperglycemia; [...] disease with esophagitis, without bleeding] Essential hypertension (6 sources) Essential (primary) hypertension; Translations: [Essential hypertension] Onset: 08-29-2021 2024 Chronic Headache; including migraine (1 source) Migraine [...] Nausea with vomiting, unspecified Episodic Nutritional deficiencies (5 sources) Vitamin D deficiency; Translations: [Vitamin D deficiency, unspecified] Onset: 2024 2024 Chronic Other aftercare (1 source) Other nursing home (current) drug therapy; Translations: [OTH CUSTODIAL CURRENT DRUG THERAPY] Onset: 08-29-2021 Episodic Other aftercare (1 source) Long-term current use of drug therapy; Translations: [Other director long term care (current) drug therapy] Episodic Other aftercare (1 source) History and physical examination, follow-up; Translations: [Encounter for follow-up examination after completed treatment for conditions other than malignant neoplasm] Episodic Other aftercare (4 sources) Long-term current use of insulin; Translations: [retirement (current) use of insulin] Onset: 2024 2024 Episodic Other gastrointestinal disorders (1 source) Dysphagia; [...] conditions (not mental disorders or infectious disease) (9 sources) Encounter for screening for malignant neoplasm [...] CIGARETTES UNCOMP] Onset: 05-23-2021 Chronic Thyroid disorders (14 sources) Hypothyroidism, unspecified; Translations: [Simple goiter] Onset: [...] Resolved: 06-22-2021 Chronic Other aftercare (1 source) 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; Translations: [[employer] CURRENT USE OF INSULIN] Onset: 05-23-2021 Episodic [...] BITE UNS PART NECK INIT ENC] Onset: 03-09-2021 Episodic Unclassified (1 source) Contact with and (suspected) exposure to covid-19 Z20.822 Unclassified (1 source) Acute cough R05.1 Viral infection (3 sources) COVID-19; Translations: [Disease caused by 2019-nCoV] Onset: 05-23-2021 Results Test Name Value Interpretation Reference Range Facility COVID + FLU Quick Testingon 08-07-2023 SARS-CoV-2 (COVID-19) RNA ANKIT+probe Ql (Unsp spec) Positive [facility] Other COVID + FLU Quick Testing Negative [facility] Other COVID + FLU Quick Testingon 04-19-2023 SARS-CoV-2 (COVID-19) RNA ANKIT+probe Ql (Unsp spec) Negative [facility] Other COVID + FLU Quick Testing Negative [facility] Other XR chest 2V*on 04-19-2023 XR chest 2V* [facility] Main [address] [place] [address] XRay Report Signed Patient: Jordon Ovalle MR#: [id number] : 1975 Acct:[id number] Age/Sex: 47 / F ADM Date: 04/19/23 Loc: XDUC Room: Type: [facility] Attending Dr: Inocencia Huitron OPERATIONS ADMINISTRATOR Copies to: Inocencia Huitron APRN Ordering Provider: [...] ABNORMALITY. Impression dictated by: Jordon Salvador Jr., D.OReese04/19/2023 2:53 PM Dictation Location: [facility]--15 Transcribed By: [facility] 04/19/23 1453 Dictated By: Jordon Salvador Jr, DO 04/19/23 1451 Signed By: 04/19/23 145 Normal [facility] XR chest 2V* [facility] [employer] Other XR chest 2V* [facility] [employer] Other XR chest 2V* [address] [place] [address] [employer] Other XR chest 2V* [place] [address] [facility] [employer] Other XR chest 2V* XRay Report [place] [employer] Other XR chest 2V* Signed [facility] Other XR chest 2V* Patient: Jordon Ovalle MR#: [id number] [facility] [employer] Other XR chest 2V* : 1975 Acct:[id number] [facility] [employer] Other XR chest 2V* Age/Sex: 47 / F ADM Date: 04/19/23 [facility] Other XR chest 2V* Loc: XDUCLY Room: Ty pe: REG CLI [facility] Other XR chest 2V* Attending Dr: Inocencia Huitron OPERATIONS ADMINISTRATOR [facility] Other XR chest 2V* Copies to: Inocencia Huitron APRN [facility] Other XR chest 2V* Ordering Provider: Inocencia Huitron OPERATIONS ADMINISTRATOR [facility] Other XR chest 2V* Date of Service: 04/19/23 [facility] Other XR chest 2V* XR/XR chest 2V*: COUGH [facility] Other XR chest 2V* Chest 2 views [employer] [facility] [employer] Other XR chest 2V* CLINICAL HISTORY: Productive cough, shortness of breath, wheezing, night sweats for 5 days. [facility] Other XR chest 2V* COMPARISON: None [facility] Other XR chest 2V* FINDINGS: [facility] Other XR chest 2V* The lung volumes. He art is normal in size. No consolidation pneumothorax pleural effusion or free [facility] Other XR chest 2V* air. [facility] Other XR chest 2V* XR/XR chest 2V* [facility] Other XR chest 2V* IMPRESSION: [facility] Other XR chest 2V* NO ACUTE CARDIOPULMONARY ABNORMALITY. [facility] Other XR chest 2V* Impression dictated by: Jordon Salvador Jr., D.OReese04/19/2023 2:53 PM [facility] Other XR chest 2V* Dictation Location: [facility]15 [facility] Other XR chest 2V* Transcribed By: PWS 04/19/23 [facility] Other XR chest 2V* Dictated By: Jordon Salvador Jr, DO 04/19/23 [facility] Other XR chest 2V* Signed By: [facility] Other XR chest 2V* 04/19/23 [facility] [employer] [facility] [employer] Other POINT OF CARE GLUCOSEon 07-12 Glucose [Mass/Vol] 193 mg/dL Critically high 74-106 [facility] Comment on above: Performed By: #### P OCGLUC #### [facility] [address] [place] [address] Dr. Brock Tovar PREG HCG QUALon 08-08-2021 , QUAL Negative Normal NEGATIVE [facility] Comment on above: Performed By: #### P REG #### [facility] [address] [address] [address] Brock Tovar PROF CHEM 8 (BAS METB)on Anion gap [Moles/Vol] 12.5 mmol/L Normal [facility] Comment on above: Performed By: #### B MP #### [facility] [address] [address] [address] Brock Tovar Calcium [Mass/Vol] 9.2 mg/dL Normal 8.4-10.2 [facility] Comment on above: Performed By: #### B MP #### [facility] [address] [address] [address] Brock Tovar Chloride [Moles/Vol] 100 mmol/L Normal 98-107 [facility] Comment on above: Performed By: #### B MP #### [facility] [address] [place] [address] Dr. Brock Tovar CO2 [Moles/Vol] 28.5 mmol/L Normal 22.0-30.0 [facility] Comment on above: Performed By: #### B MP #### [facility] [address] [place] [address] Dr. Brock Tovar Creatinine [Mass/Vol] 0.52 mg/dL Normal 0.52-1.04 [facility] Comment on above: Performed By: #### B MP #### [facility] [address] [place] [address] Dr. Brock Tovar EGFR-AF MALIAN >60 Normal >=60 [facility] Comment on above: Performed By: #### B MP #### [facility] [address] [place] [address] Dr. Brock Tovar EGFR-NON AF MALIAN >60 Normal >=60 [facility] Comment on above: Performed By: #### B MP #### [facility] [address] [place] [address] Dr. Brock Tovar Glucose [Mass/Vol] 167 mg/dL Critically high 74-106 [facility] Comment on above: Performed By: #### B MP #### [facility] [address] [place] [address] Dr. Brock Tovar Potassium [Moles/Vol] 4.0 mmol/L Normal 3.4-5.0 [facility] Comment on above: Performed By: #### B MP #### [facility] [address] [place] [address] Dr. Brock Tovar Sodium [Moles/Vol] 137 mmol/L Normal 137-145 [facility] Comment on above: Performed By: #### B MP #### [facility] [address] [place] [address] Dr. Brock Tovar Urea nitrogen [Mass/Vol] 11.0 mg/dL Normal 7.0-17.0 [facility] Comment on above: Performed By: #### B MP #### [facility] [address] [place] [address] Dr. Brock Tovar Urea nitrogen/Creatini ne [Mass ratio] 21.2 mg/mg Normal [facility] Comment on above: Performed By: #### B MP #### [facility] [address] [place] [address] Dr. Brock Tovar US PELVIS AND TRANSVAGon US PELVIS AND [...] by: BREN DENTON Date: 2021-07-04 16:09 Normal [facility] PAP ACOG PANEL 2: 30 to 65on 06-27-2021 . . Normal [facility] Comment on above: Result Comment: Perf ormed at: WB Performed By: #### [id number] #### [facility] [address] [place] [address] Dr. Brock Tovar Age Gdln ACOG Testing 30-65 Normal [facility] Comment on above: Performed By: #### [id number] #### [facility] [address] [place] [address] Dr. Brock Tovar DIAGNOSIS: Comment Normal [facility] Comment on above: Result Comment: NEGA TIVE FOR INTRAEPITHELIAL LESION OR MALIGNANCY. Performed at: WB Performed By: #### [id number] #### [facility] [address] [place] [address] Dr. Brock Tovar HPV Aptima Negative Normal Negative [facility] Comment on above: Result Comment: This nucleic acid amplification test detects fourteen high-risk HPV types (16,18,31,33,35,39,45,51,52,56,58,59,66,68) without differentiation. Performed at: =G Performed By: #### [id number] #### [facility] [address] [place] [address] Dr. Brock Tovar Methodology: Comment Normal [facility] Comment on above: Result Comment: This liquid based ThinPrep(R) pap test was screened with the use of an image guided system. Performed at: WB Performed By: #### [id number] #### [facility] [address] [place] [address] Dr. Brock Tovar Note: Comment Normal [facility] Comment on above: Result Comment: The Pap smear is a screening test designed to aid in the detection of premalignant and malignant conditions of the uterine cervix. It is not a diagnostic procedure and should not be used as the sole means of detecting cervical cancer. Both false-positive and false-negative reports do occur. . Performed at: WB Performed By: #### [id number] #### [facility] [address] [place] [address] Dr. Brock Tovar Performed by: Comment Normal [facility] Comment on above: Result Comment: Cortez Tolliver, Production Supervisor (ASCP) Performed at: WB Performed By: #### [id number] #### [facility] [address] [place] [address] Dr. Brock Tovar Specimen adequacy: Comment Normal [facility] Comment on above: Result Comment: Sati sfactory for evaluation. Endocervical and/or squamous metaplastic cells (endocervical component) are present. Performed at: WB Performed By: #### [id number] #### [facility] [address] [place] [address] Dr. Brock Tovar CBC AUTO DIFFon 05-20-2021 BASO # 0.0 103/ul Normal 0.0-0.1 [facility] Comment on above: Performed By: #### C BC #### [facility] [address] [place] [address] Sixto Liv Basophils/100 WBC (Bld) 0.3 % Normal 0.2-2.0 [facility] Comment on above: Performed By: #### C BC #### [facility] [address] [place] [address] Sixto Liv EO # 0.1 103/ul Normal 0.0-0.7 [facility] Comment on above: Performed By: #### C BC #### [facility] [address] [id number] Sixto Liv Eosinophils/100 WBC (Bld) 1.4 % Normal 0.9-7.0 [facility] Comment on above: Performed By: #### C BC #### [facility] [address] [place], [place] [id number] Sixto Liv Erythrocyte distribution width (RBC) [Ratio] 12.9 % Normal 11.0-15.0 [facility] Comment on above: Performed By: #### C BC #### [facility] [address] [place] [address] Sixto Liv Hematocrit (Bld) [Volume fraction] 41.0 % Normal 36.0-48.0 [facility] Comment on above: Performed By: #### C BC #### [facility] [address] [place] [address] Sixto Liv Hemoglobin (Bld) [Mass/Vol] 13.5 g/dL Normal 12.0-16.0 [facility] Comment on above: Performed By: #### C BC #### [facility] [address] [place], [place] [id number] Sixto Liv IG # 0.08 10e3/ul Critically high 0.00-0.03 [facility] Comment on above: Performed By: #### C BC #### [facility] [address] [place] [address] Sixto Liv IG % 0.8 % Critically high 0.0-0.5 [facility] Comment on above: Performed By: #### C BC #### [facility] [address] [place], [place] [id number] Sixto Liv LYMPH # 1.3 103/ul Normal 1.2-3.8 [facility] Comment on above: Performed By: #### C BC #### [facility] [address] [place] [address] Sixto Liv Lymphocytes/100 WBC (Bld) 12.8 % Critically low 20.5-60.0 [facility] Comment on above: Performed By: #### C BC #### [facility] [address] [place], [place] [id number] Sixto Liv MANUAL DIFF REQ NO Normal [facility] Comment on above: Performed By: #### C BC #### [facility] [address] [place], [place] [id number] Sixto Liv MCH (RBC) [Entitic mass] 28.7 pg Normal 26.7-34.0 [facility] Comment on above: Performed By: #### C BC #### [facility] [address] [place], [place] [id number] Sixtotam Peck MCHC (RBC) [Mass/Vol] 32.9 g/dL Normal 29.9-35.2 [facility] Comment on above: Performed By: #### C BC #### [facility] [address] [place], [place] [id number] Sixto Liv MCV (RBC) [Entitic vol] 87.2 fL Normal 81.0-99.0 [facility] Comment on above: Performed By: #### C BC #### [facility] [address] [place], [place] [address] Sixto Liv MONO # 0.7 103/ul Normal 0.3-0.8 [facility] Comment on above: Performed By: #### C BC #### [facility] [address] [place], [place] [address] Sixto Liv Monocytes/100 WBC (Bld) 7.0 % Normal 1.7-12.0 [facility] Comment on above: Performed By: #### C BC #### [facility] [address] [place], [place] [id number] Sixto Liv NEUT # 8.0 103/ul Critically high 1.4-6.5 [facility] Comment on above: Performed By: #### C BC #### [facility] [address] [place], [place] [address] Sixto Liv Neutrophils/100 WBC (Bld) 77.7 % Critically high 43.0-75.0 [facility] Comment on above: Performed By: #### C BC #### [facility] [address] [place], [place] [id number] Sixto Peck Platelet mean volume (Bld) [Entitic vol] 10.1 fL Normal 9.5-13.5 [facility] Comment on above: Performed By: #### C BC #### [facility] [address] [place] [address] Sixto Peck PLT 157 103/ul Normal 150-450 [facility] Comment on above: Performed By: #### C BC #### [facility] [address] [place], [place] [address] Sixto Peck RBC 4.70 106/ul Normal 4.20-5.40 [facility] Comment on above: Performed By: #### C BC #### [facility] [address] [place] [address] Sixto Peck WBC 10.3 103/ul Normal 4.0-11.0 [facility] Comment on above: Performed By: #### C BC #### [facility] [address] [place] [address] Sixto Peck D-DIMERon 05-20-2021 D-DIMER 0.48 mg/L FEU Normal 0.19-0.50 [facility] Comment on above: Performed By: #### D DIM #### [facility] [address] [place], [place] [id number] Sixtotam Peck D-DIMER COMMENTS SEE BELOW Normal [facility] Comment on above: Result Comment: Incr eases [...] hospitalization. Performed By: #### D DIM #### [facility] [address] [place] [address] Sixto Peck PROF 14(COMP METB)on 021 Albumin [Mass/Vol] 3.5 g/dL Normal 3.5-5.0 [facility] Comment on above: Performed By: #### C BC #### [facility] [address] [place], [place] [address] Sixto Liv Albumin/Globulin [Mass ratio] 0.9 {ratio} Normal [facility] Comment on above: Performed By: #### C BC #### [facility] [address] [place], [place] [address] Sixto Liv ALP [Catalytic activity/Vol] 100 U/L Normal 38-126 [facility] Comment on above: Performed By: #### C BC #### [facility] [address] [place], [place] [address] Sixto Liv ALT [Catalytic activity/Vol] 35 U/L Normal 9-52 [facility] Comment on above: Performed By: #### C BC #### [facility] [address] [place], [place] [address] Sixto Liv Anion gap [Moles/Vol] 12.1 mmol/L Normal [facility] Comment on above: Performed By: #### C BC #### [facility] [address] [place], [place] [address] Sixto Liv AST [Catalytic activity/Vol] 16 U/L Normal 14-36 [facility] Comment on above: Performed By: #### C BC #### [facility] [address] [place], [place] [address] Sixto Liv Bilirubin [Mass/Vol] 0.4 mg/dL Normal 0.2-1.3 [facility] Comment on above: Performed By: #### C BC #### [facility] [address] [place], [place] [address] Sixto Liv Calcium [Mass/Vol] 8.6 mg/dL Normal 8.4-10.2 [facility] Comment on above: Performed By: #### C BC #### [facility] [address] [place], [place] [address] Sixto Liv Chloride [Moles/Vol] 99 mmol/L Normal 98-107 [facility] Comment on above: Performed By: #### C BC #### [facility] [address] [address] Sixto Liv CO2 [Moles/Vol] 28.6 mmol/L Normal 22.0-30.0 [facility] Comment on above: Performed By: #### C BC #### [facility] [address] [place], [place] [address] Sixto Liv Creatinine [Mass/Vol] 0.60 mg/dL Normal 0.52-1.04 [facility] Comment on above: Performed By: #### C BC #### [facility] [address] [id number] Sixto Liv EGFR-AF MALIAN >60 Normal >=60 [facility] Comment on above: Performed By: #### C BC #### [facility] [address] [place] [address] Sixto Liv EGFR-NON AF MALIAN >60 Normal >=60 [facility] Comment on above: Performed By: #### C BC #### [facility] [address] [place] [address] Sixto Liv Globulin (S) [Mass/Vol] 3.8 g/dL Normal [facility] Comment on above: Performed By: #### C BC #### [facility] [address] [place] [address] Sixto Liv Glucose [Mass/Vol] 262 mg/dL Critically high 74-106 [facility] Comment on above: Performed By: #### C BC #### [facility] [address] [place] [address] Sixto Liv Potassium [Moles/Vol] 3.7 mmol/L Normal 3.4-5.0 [facility] Comment on above: Performed By: #### C BC #### [facility] [address] [place] [address] Sixto Liv Protein [Mass/Vol] 7.3 g/dL Normal 6.1-8.2 [facility] Comment on above: Performed By: #### C BC #### [facility] [address] [place] [address] Sixto Liv Sodium [Moles/Vol] 136 mmol/L Critically low 137-145 [facility] Comment on above: Performed By: #### C BC #### [facility] [address] [id number] Sixto Peck Urea nitrogen [Mass/Vol] 6.0 mg/dL Critically low 7.0-17.0 [facility] Comment on above: Performed By: #### C BC #### [facility] [address] [id number] Sixto Peck Urea nitrogen/Creatini ne [Mass ratio] 10.0 mg/mg Normal [facility] Comment on above: Performed By: #### C BC #### [facility] [address] [id number] Sixto Peck TROPONIN, HIGH SENSITIVITYon 05-20-2021 HSTROP <4.0 Normal 4.0-35.5 [facility] Comment on above: Result Comment: CUT- OFF POINTS HAVE BEEN ESTABLISHED BASED ON THE FOURTH UNIVERSAL DEFINITIONS OF MYOCARDIAL INFARCTION. THE UPPER REFERENCE LIMIT (URL) OF TROPONIN, DEFINED THE 99TH PERCENTILE OF cTnI DISTRIBUTION IN A REFERENCE POPULATION, HAS BEEN CONFIRMED THE DECISION THRESHOLD FOR [place] DIAGNOSIS. Performed By: #### C BC #### [facility] [address] [place], [place] [id number] Sixto Peck XR CHEST 1 Von 05-20-2021 XR CHEST [...] as clinically indicated. Electronically authenticated by: JOZEF SAID Date: 2021-05-20 01:48 Normal [facility] CBC AUTO DIFFon 03-07-2021 BASO # 0.1 103/ul Normal 0.0-0.1 [facility] Comment on above: Performed By: #### C BC #### [facility] [address] [place], [place] [id number] Sixto Liv Basophils/100 WBC (Bld) 0.4 % Normal 0.2-2.0 [facility] Comment on above: Performed By: #### C BC #### [facility] [address] [place] [address] Sixto Liv EO # 0.2 103/ul Normal 0.0-0.7 [facility] Comment on above: Performed By: #### C BC #### [facility] [address] [place] [address] Sixto Liv Eosinophils/100 WBC (Bld) 1.4 % Normal 0.9-7.0 [facility] Comment on above: Performed By: #### C BC #### [facility] [address] [place] [address] Sixto Liv Erythrocyte distribution width (RBC) [Ratio] 12.5 % Normal 11.0-15.0 [facility] Comment on above: Performed By: #### C BC #### [facility] [address] [place] [address] Sixto Liv Hematocrit (Bld) [Volume fraction] 43.3 % Normal 36.0-48.0 [facility] Comment on above: Performed By: #### C BC #### [facility] [address] [place] [address] Sixto Liv Hemoglobin (Bld) [Mass/Vol] 14.4 g/dL Normal 12.0-16.0 [facility] Comment on above: Performed By: #### C BC #### [facility] [address] [place] [address] Sixto Liv IG # 0.07 10e3/ul Critically high 0.00-0.03 [facility] Comment on above: Performed By: #### C BC #### [facility] [address] [place] [address] Sixto Liv IG % 0.6 % Critically high 0.0-0.5 [facility] Comment on above: Performed By: #### C BC #### [facility] [address] [place], [place] [address] Sixto Liv LYMPH # 2.0 103/ul Normal 1.2-3.8 [facility] Comment on above: Performed By: #### C BC #### [facility] [address] [place], [place] [address] Sixto Peck Lymphocytes/100 WBC (Bld) 16.7 % Critically low 20.5-60.0 [facility] Comment on above: Performed By: #### C BC #### [facility] [address] [place], [place] [address] Sixto Peck MANUAL DIFF REQ NO Normal [facility] Comment on above: Performed By: #### C BC #### [facility] [address] [place], [place] [address] Sixto Peck MCH (RBC) [Entitic mass] 28.7 pg Normal 26.7-34.0 [facility] Comment on above: Performed By: #### C BC #### [facility] [address] [place] [address] Sixto Peck MCHC (RBC) [Mass/Vol] 33.3 g/dL Normal 29.9-35.2 [facility] Comment on above: Performed By: #### C BC #### [facility] [address] [place], [place] [address] Sixto Peck MCV (RBC) [Entitic vol] 86.4 fL Normal 81.0-99.0 [facility] Comment on above: Performed By: #### C BC #### [facility] [address] [place], [place] [address] Sixto Peck MONO # 0.7 103/ul Normal 0.3-0.8 [facility] Comment on above: Performed By: #### C BC #### [facility] [address] [place], [place] [address] Sixto Peck Monocytes/100 WBC (Bld) 5.7 % Normal 1.7-12.0 [facility] Comment on above: Performed By: #### C BC #### [facility] [address] [place], [place] [address] Sixto Liv NEUT # 8.9 103/ul Critically high 1.4-6.5 [facility] Comment on above: Performed By: #### C BC #### [facility] [address], [place] [address] Sixto Peck Neutrophils/100 WBC (Bld) 75.2 % Critically high 43.0-75.0 [facility] Comment on above: Performed By: #### C BC #### [facility] [address] [place], [place] [address] Sixto Peck Platelet mean volume (Bld) [Entitic vol] 10.1 fL Normal 9.5-13.5 [facility] Comment on above: Performed By: #### C BC #### [facility] [address] [place], [place] [address] Sixto Bowdenen PLT 206 103/ul Normal 150-450 [facility] Comment on above: Performed By: #### C BC #### [facility] [address] [place], [place] [address] Sixto Liv RBC 5.01 106/ul Normal 4.20-5.40 [facility] Comment on above: Performed By: #### C BC #### [facility] [address], [place] [address] Sixto Bowdenen WBC 11.8 103/ul Critically high 4.0-11.0 [facility] Comment on above: Performed By: #### C BC #### [facility] [address] [place] [address] [facility] W CONon [address] W CON EXAMINATION: CT [...] MANI MULLINS Date: 2021-03-07 16:14 Normal [facility] PREG HCG QUALon 03-07-2021 , QUAL Negative Normal NEGATIVE [facility] Comment on above: Performed By: #### C BC #### [facility] [address] [place] [address] Sixto Liv PROF CHEM 8 (BAS METB)on Anion gap [Moles/Vol] 15.3 mmol/L Normal [facility] Comment on above: Performed By: #### C BC #### [facility] [address] [address] Sixto Liv Calcium [Mass/Vol] 9.3 mg/dL Normal 8.4-10.2 [facility] Comment on above: Performed By: #### C BC #### [facility] [address] [id number] Sixto Liv Chloride [Moles/Vol] 101 mmol/L Normal 98-107 [facility] Comment on above: Performed By: #### C BC #### [facility] [address] [address] Sixto Liv CO2 [Moles/Vol] 26.5 mmol/L Normal 22.0-30.0 [facility] Comment on above: Performed By: #### C BC #### [facility] [address] [address] Sixto Liv Creatinine [Mass/Vol] 0.65 mg/dL Normal 0.52-1.04 [facility] Comment on above: Performed By: #### C BC #### [facility] [address] [id number] Sixto Liv EGFR-AF MALIAN >60 Normal >=60 [facility] Comment on above: Performed By: #### C BC #### [facility] [address] [id number] Sixto Liv EGFR-NON AF MALIAN >60 Normal >=60 [facility] Comment on above: Performed By: #### C BC #### [facility] [address] [place] [address] Sixto Liv Glucose [Mass/Vol] 269 mg/dL Critically high 74-106 [facility] Comment on above: Performed By: #### C BC #### [facility] [address] [place] [address] Sixto Liv Potassium [Moles/Vol] 3.8 mmol/L Normal 3.4-5.0 [facility] Comment on above: Performed By: #### C BC #### [facility] [address] [place] [address] Sixto Liv Sodium [Moles/Vol] 139 mmol/L Normal 137-145 [facility] Comment on above: Performed By: #### C BC #### [facility] [address] [place] [address] Sixto Liv Urea nitrogen [Mass/Vol] 10.0 mg/dL Normal 7.0-17.0 [facility] Comment on above: Performed By: #### C BC #### [facility] [address] [place] [address] Sixto Liv Urea nitrogen/Creatini ne [Mass ratio] 15.4 mg/mg Normal [facility] Comment on above: Performed By: #### C BC #### [facility] [address] [place], [place] [address] Sixto Liv CBC AUTO DIFFon 03-03-2021 BASO # 0.1 103/ul Normal 0.0-0.1 [facility] Comment on above: Performed By: #### C BC #### [facility] [address] [place], [place] [address] Sixto Liv Basophils/100 WBC (Bld) 0.5 % Normal 0.2-2.0 [facility] Comment on above: Performed By: #### C BC #### [facility] [address] [place] [address] Sixto Liv EO # 0.2 103/ul Normal 0.0-0.7 [facility] Comment on above: Performed By: #### C BC #### [facility] [address] [place] [address] Sixto Liv Eosinophils/100 WBC (Bld) 1.9 % Normal 0.9-7.0 [facility] Comment on above: Performed By: #### C BC #### [facility] [address] [place] [address] Sixto Liv Erythrocyte distribution width (RBC) [Ratio] 12.4 % Normal 11.0-15.0 [facility] Comment on above: Performed By: #### C BC #### [facility] [address] [place] [address] Sixto Liv Hematocrit (Bld) [Volume fraction] 43.4 % Normal 36.0-48.0 [facility] Comment on above: Performed By: #### C BC #### [facility] [address] [place] [address] Sixto Liv Hemoglobin (Bld) [Mass/Vol] 14.6 g/dL Normal 12.0-16.0 [facility] Comment on above: Performed By: #### C BC #### [facility] [address] [place] [address] Sixto Liv IG # 0.08 10e3/ul Critically high 0.00-0.03 [facility] Comment on above: Performed By: #### C BC #### [facility] [address] [place] [address] Sixto Liv IG % 0.7 % Critically high 0.0-0.5 [facility] Comment on above: Performed By: #### C BC #### [facility] [address] [place], [place] [address] Sixto Liv LYMPH # 1.9 103/ul Normal 1.2-3.8 [facility] Comment on above: Performed By: #### C BC #### [facility] [address] [place], [place] [address] Sixto Peck Lymphocytes/100 WBC (Bld) 17.2 % Critically low 20.5-60.0 [facility] Comment on above: Performed By: #### C BC #### [facility] [address] [place], [place] [address] Sixto Peck MANUAL DIFF REQ NO Normal [facility] Comment on above: Performed By: #### C BC #### [facility] [address] [place], [place] [address] Sixto Peck MCH (RBC) [Entitic mass] 29.0 pg Normal 26.7-34.0 [facility] Comment on above: Performed By: #### C BC #### [facility] [address] [place] [address] Sixto Peck MCHC (RBC) [Mass/Vol] 33.6 g/dL Normal 29.9-35.2 [facility] Comment on above: Performed By: #### C BC #### [facility] [address] [place], [place] [address] Sixto Peck MCV (RBC) [Entitic vol] 86.1 fL Normal 81.0-99.0 [facility] Comment on above: Performed By: #### C BC #### [facility] [address] [place] [address] Sixtotam Bowdenen MONO # 0.7 103/ul Normal 0.3-0.8 [facility] Comment on above: Performed By: #### C BC #### [facility] [address] [place], [place] [address] Sixto Peck Monocytes/100 WBC (Bld) 6.3 % Normal 1.7-12.0 [facility] Comment on above: Performed By: #### C BC #### [facility] [address] [place] [address] Sixto Liv NEUT # 8.2 103/ul Critically high 1.4-6.5 [facility] Comment on above: Performed By: #### C BC #### [facility] [address], [place] [address] Sixto Peck Neutrophils/100 WBC (Bld) 73.4 % Normal 43.0-75.0 [facility] Comment on above: Performed By: #### C BC #### [facility] [address] [place], [place] [address] Sixtotam Peck Platelet mean volume (Bld) [Entitic vol] 10.2 fL Normal 9.5-13.5 [facility] Comment on above: Performed By: #### C BC #### [facility] [address] [place], [place] [address] Sixto Liv PLT 208 103/ul Normal 150-450 [facility] Comment on above: Performed By: #### C BC #### [facility] [address] [place], [place] [address] Sixto Liv RBC 5.04 106/ul Normal 4.20-5.40 [facility] Comment on above: Performed By: #### C BC #### [facility] [address], [place] [address] Sixto Liv WBC 11.1 103/ul Critically high 4.0-11.0 [facility] Comment on above: Performed By: #### C BC #### [facility] [address] [place] [address] Sixto Peck FREE T4on 03-03-2021 Free T4 [Mass/Vol] 0.87 ng/dL Normal 0.78-2.19 [facility] Comment on above: Performed By: #### F T4 #### [facility] [address] [place] [address] Sixto Peck H PYLORI ANTIBODYon 03-03-20 21 H PYLORI Negative Normal NEGATIVE [facility] Comment on above: Performed By: #### C BC #### [facility] [address] [place], [place] [address] Sixto Peck LIPID PROFILEon 03-03-2021 CHOL-HDL RATIO NORM SEE BELOW Normal [facility] Comment on above: Result Comment: 3.3 - 4.4 LOW RISK 4.4 - 7.1 AVERAGE RISK 7.1 - 11.0 MODERATE RISK >11.0 HIGH RISK Performed By: #### C MP, TSH, LIPID #### [facility] [address] [id number] Sixto Liv Cholesterol [Mass/Vol] 193 mg/dL Normal <=200 [facility] Comment on above: Performed By: #### C MP, TSH, LIPID #### [facility] [address] [id number] Sixto Liv Cholesterol in HDL [Mass/Vol] 35 mg/dL Normal [facility] Comment on above: Performed By: #### C MP, TSH, LIPID #### [facility] [address] [id number] Sixto Liv Cholesterol in LDL [Mass/Vol] 106.2 mg/dL Normal [facility] Comment on above: Performed By: #### C MP, TSH, LIPID #### [facility] [address] [id number] Sixto Liv Cholesterol.total /Cholesterol in HDL [Mass ratio] 5.5 {ratio} Normal [facility] Comment on above: Performed By: #### C MP, TSH, LIPID #### [facility] [address] [id number] Sixto Liv HDL NORMAL > or = 60 mg/dl - LO W CARDIOVASCULAR RISK <40 mg/dl - HIGH CARDIOVASCULAR RISK Normal [facility] Comment on above: Performed By: #### C MP, TSH, LIPID #### [facility] [address] [id number] Sixto Liv LDL CALC NORMAL SEE BELOW Normal [facility] Comment on above: Result Comment: <100 mg/dl OPTIMAL 100 - 129 mg/dl NEAR OR ABOVE OPTIMAL 130 - 159 mg/dl BORDERLINE HIGH 160 - 189 mg/dl HIGH >190 mg/dl VERY HIGH Performed By: #### C MP, TSH, LIPID #### [facility] [address] [address] Sixto Liv Triglyceride [Mass/Vol] 259 mg/dL Critically high <=150 [facility] Comment on above: Performed By: #### C MP, TSH, LIPID #### [facility] [address] [place], [place] [address] Sixtotam Peck VLDL CALC 51.8 mg/dL Normal [facility] Comment on above: Performed By: #### C MP, TSH, LIPID #### [facility] [address] [place], [place] [address] Sixtotam Bowdenen MG MAMM SCREEN 3D SABINO CADon 03-03-2021 MG MAMM SCREEN 3D SABINO CAD Patient: JORDON OVALLE Exam Date: 03/03/2021 : 1975 Gender:F Ordering : DR MIRNA OSWALD M.D. Admission #: [id number] Family : Order #: [id number] CLICK HERE TO VIEW EXAM RADIOLOGY REPORT [...] Treatments None Family Cancers None LOCATION: [facility] BREAST COMPOSITION: Almost entirely fatty. FINDINGS: DIAGNOSTIC [...] M.D. on 03/03/2021 at 15:38 Normal [facility] PROF 14(COMP METB)on 021 Albumin [Mass/Vol] 3.5 g/dL Normal 3.5-5.0 [facility] Comment on above: Performed By: #### C MP, TSH, LIPID #### [facility] [address] [place], [place] [address] Sixtotam Peck Albumin/Globulin [Mass ratio] 0.9 {ratio} Normal [facility] Comment on above: Performed By: #### C MP, TSH, LIPID #### [facility] [address] [id number] Sixto Liv ALP [Catalytic activity/Vol] 92 U/L Normal 38-126 [facility] Comment on above: Performed By: #### C MP, TSH, LIPID #### [facility] [address] [id number] Sixto Liv ALT [Catalytic activity/Vol] 37 U/L Normal 9-52 [facility] Comment on above: Performed By: #### C MP, TSH, LIPID #### [facility] [address] [id number] Sixto Liv Anion gap [Moles/Vol] 13.9 mmol/L Normal [facility] Comment on above: Performed By: #### C MP, TSH, LIPID #### [facility] [address] [place], [place] [id number] Sixto Liv AST [Catalytic activity/Vol] 19 U/L Normal 14-36 [facility] Comment on above: Performed By: #### C MP, TSH, LIPID #### [facility] [address] [place], [place] [id number] Sixto Liv Bilirubin [Mass/Vol] 0.4 mg/dL Normal 0.2-1.3 [facility] Comment on above: Performed By: #### C MP, TSH, LIPID #### [facility] [address] [place], [place] [id number] Sixto Liv Calcium [Mass/Vol] 9.0 mg/dL Normal 8.4-10.2 [facility] Comment on above: Performed By: #### C MP, TSH, LIPID #### [facility] [address] [id number] Sixto Liv Chloride [Moles/Vol] 101 mmol/L Normal 98-107 [facility] Comment on above: Performed By: #### C MP, TSH, LIPID #### [facility] [address] [id number] Sixto Liv CO2 [Moles/Vol] 27.2 mmol/L Normal 22.0-30.0 [facility] Comment on above: Performed By: #### C MP, TSH, LIPID #### [facility] [address] [place], [place] [id number] Sixto Liv Creatinine [Mass/Vol] 0.62 mg/dL Normal 0.52-1.04 [facility] Comment on above: Performed By: #### C MP, TSH, LIPID #### [facility] [address] [id number] Sixto Liv EGFR-AF MALIAN >60 Normal >=60 [facility] Comment on above: Performed By: #### C MP, TSH, LIPID #### [facility] [address] [place] [address] Sixto Liv EGFR-NON AF MALIAN >60 Normal >=60 [facility] Comment on above: Performed By: #### C MP, TSH, LIPID #### [facility] [address] [place] [address] Sixto Liv Globulin (S) [Mass/Vol] 4.0 g/dL Normal [facility] Comment on above: Performed By: #### C MP, TSH, LIPID #### [facility] [address] [place] [address] Sixto Liv Glucose [Mass/Vol] 204 mg/dL Critically high 74-106 [facility] Comment on above: Performed By: #### C MP, TSH, LIPID #### [facility] [address] [place] [address] Sixto Liv Potassium [Moles/Vol] 4.1 mmol/L Normal 3.4-5.0 [facility] Comment on above: Performed By: #### C MP, TSH, LIPID #### [facility] [address] [place] [address] Sixto Liv Protein [Mass/Vol] 7.5 g/dL Normal 6.1-8.2 [facility] Comment on above: Performed By: #### C MP, TSH, LIPID #### [facility] [address] [place] [address] Sixto Liv Sodium [Moles/Vol] 138 mmol/L Normal 137-145 [facility] Comment on above: Performed By: #### C MP, TSH, LIPID #### [facility] [address] [place] [address] Sixto Liv Urea nitrogen [Mass/Vol] 12.0 mg/dL Normal 7.0-17.0 [facility] Comment on above: Performed By: #### C MP, TSH, LIPID #### [facility] [address] [place], [place] [id number] Sixto Liv Urea nitrogen/Creatini ne [Mass ratio] 19.4 mg/mg Normal [facility] Comment on above: Performed By: #### C MP, TSH, LIPID #### [facility] [address] [place], [place] [id number] Sixtotam Peck TSHon 03-03-2021 TSH 1.987 uIU/mL Normal 0.470-4.680 [facility] Comment on above: Performed By: #### C MP, TSH, LIPID #### [facility] [address] [place], [place] [id number] Sixto Liv TSH RANGE SEE BELOW Normal [facility] Comment on above: Result Comment: <0.3 4 UIU/ml HYPERTHYROID 0.34-5.60 UIU/ml EUTHYROID >5.60 UIU/ml HYPOTHYROID Performed By: #### C MP, TSH, LIPID #### [facility] [address] [place], [place] [id number] Sixtotam Peck Vital Signs Date Time Vital Sign Value Performing Clinician Facility 07-21-2024 13:07-0500 Body height 154.94 cm [facility] 07-21-2024 13:07-0500 Body mass index (BMI) [Ratio] 34.9 kg/m2 [facility] 07-21-2024 13:07-0500 Body weight 83.91 kg [facility] 07-21-2024 13:07-0500 Diastolic blood pressure 81 mm[Hg] [facility] 07-21-2024 13:07-0500 Heart rate 88 /min [facility] 07-21-2024 13:07-0500 Systolic blood pressure 122 mm[Hg] [facility] 10-11-2023 09:30-0500 Body height 154.94 cm Mirna Oswald Other [facility] Other 10-11-2023 09:30-0500 Body mass index (BMI) [Ratio] 35.33 kg/m2 Mirna Oswald Other [facility] Other 10-11-2023 09:30-0500 Body weight 84.82 kg Mirna Oswald Other [facility] Other 10-11-2023 09:30-0500 Diastolic blood pressure 81 mm[Hg] Mirna Oswald Other [facility] Other 10-11-2023 09:30-0500 Systolic blood pressure 136 mm[Hg] Mirna Oswald Other [facility] Other 08-07-2023 16:40-0500 Body height 154.94 cm Charlotte Stevensonler Other [facility] Other 08-07-2023 16:40-0500 Body mass index (BMI) [Ratio] 31.14 kg/m2 Charlotte Foster Other [facility] Other 08-07-2023 16:40-0500 Body temperature 98.5 [degF] Charlotte Foster Other [facility] Other 08-07-2023 16:40-0500 Body weight 74.75 kg Charlotte Foster Other [facility] Other 08-07-2023 16:40-0500 Respiratory rate 18 /min Charlotte Foster Other [facility] Other 11-28-2023 16:40-0500 SaO2% (BldA) [Mass fraction] 97 % Charlotte Foster Other [facility] Other 05-24-2023 10:15-0400 Body height 154.94 cm Mirna Oswald Other [facility] Other 05-24-2023 10:15-0400 Body mass index (BMI) [Ratio] 34.23 kg/m2 Mirna Oswald Other [facility] Other 05-24-2023 10:15-0400 Body weight 82.19 kg Mirna Oswald Other [facility] Other 05-24-2023 10:15-0400 Diastolic blood pressure 75 mm[Hg] Mirna Oswald Other [facility] Other 05-24-2023 10:15-0400 Respiratory rate 12 /min Mirna Oswald Other [facility] Other 05-24-2023 10:15-0400 Systolic blood pressure 119 mm[Hg] Mirna Oswald Other [facility] Other 04-19-2023 13:55-0400 Body height 154.94 cm Inocencia Huitron Other [facility] Other 04-19-2023 13:55-0400 Body mass index (BMI) [Ratio] 35.71 kg/m2 Inocencia Huitron Other [facility] Other 04-19-2023 13:55-0400 Body temperature 98.9 [degF] Inocencia Huitron Other [facility] Other 04-19-2023 13:55-0400 Body weight 85.73 kg Inocencia Huitron Other [facility] Other 04-19-2023 13:55-0400 Respiratory rate 18 /min Inocencia Huitron Other [facility] Other 04-19-2023 13:55-0400 SaO2% (BldA) [Mass fraction] 96 % Inocencia Huitron Other [facility] Other Encounters Encounter Date Encounter Type Care Provider Facility Start: 07-21-2024 End: 07-21-[address] [facility] Work Phone: Start: 07-21-2024 End: 07-21-2024 Patient encounter procedure [facility] Physician [facility] Work Phone: Start: 07-18-2024 End: 07-19-2024 Refill Jason Granda MD Work Phone: [facility] Comment on above: Diabetic neuropathy with neurologic complication ([facility]) Start: 07-15-2024 End: 07-16-2024 Telephone encounter Jason Granda MD Work Phone: [facility] Start: 06-25-2024 End: 06-26-2024 Telephone encounter Jason Granda MD Work Phone: [facility] Start: 06-11-2024 End: 06-17-2024 Telephone encounter Jason Granda MD Work Phone: [facility] Start: 06-03-2024 End: 06-03-2024 ambulatory JASON GRANDA Not Available Start: 10-11-2023 End: 10-11-2023 ambulatory Minra Oswald Other [facility] Other Start: 10-11-2023 Office outpatient vi sit 15 minutes Mirna Oswald [facility] Start: 10-11-2023 Telephone encounter Mirna Oswald [facility] Start: 08-07-2023 End: 08-07-2023 ambulatory Charlotte Stevensonler Other [facility] Other Start: 08-07-2023 Office outpatient vi sit 25 minutes Charlotte Foster [facility] Start: 07-13-2023 End: 07-13-2023 ambulatory Mirna Darek Other [facility] Other Start: 07-13-2023 Telephone encounter Mirna Darek [facility] Start: 05-25-2023 End: 05-25-2023 ambulatory Mirna Darek Other [facility] Other Start: 05-25-2023 Telephone encounter Mirna Darek [facility] Start: 05-24-2023 End: 05-24-2023 ambulatory Mirna Darek Other [facility] Other Start: 05-24-2023 Office outpatient vi sit 25 minutes Mirna Oswald [facility] Start: 04-19-2023 End: 04-19-2023 Patient encounter procedure PHYSICIAN NO [facility] Work Phone: Start: 04-19-2023 End: 04-19-2023 ambulatory PHYSICIAN NO [facility] Other Start: 04-19-2023 Office outpatient vi sit 15 minutes Inocencia Huitron [facility] Start: 08-12-2021 Encounter for preprocedural laboratory examination DR MIKKI DE LA TORRE [facility] Start: 08-08-2021 End: 08-08-[address] MIKKI DE LA TORRE Facility:[facility] Start: 08-03-2021 End: 08-04-[address] MIKKI DE LA TORRE Facility:[facility] Start: 08-03-2021 End: 08-04-2021 Encounter for preprocedural laboratory examination DR MIKKI DE LA TORRE Facility:[facility] Start: 07-05-2021 End: 07-05-2021 Gynecological examination normal Inocencia Huitron Other [facility] Other Start: 07-04-2021 End: 07-05-[address] MIKKI DE LA TORRE Facility:[facility] Start: 06-23-2021 End: 06-23-[address] MIKKI DE LA TORRE Facility:[facility] Start: 05-20-2021 End: 05-20-[address] ARIANA ENNIS Facility:[facility] Start: 03-08-2021 Encounter for genera l adult medical examination without abnormal findings DR MIRNA OSWALD [facility] Start: 03-07-2021 End: 03-07-[address] MANI MULLINS Facility:[facility] Start: 03-03-2021 End: 03-03-2021 Departed Referred Sindy Harris Work Phone: [facility] [place] Start: 03-03-2021 End: 03-04-[address] MIRNA OSWALD Facility:[facility] Start: 03-03-2021 End: 03-04-2021 Encounter for general adult medical examination without abnormal findings DR MIRNA OSWALD Facility:[facility] Procedures Date Procedure Procedure Detail Performing Clinician Start: 04-19-2023 Plain chest X-ray PHYSI REINA NO FAMILY Start: 08-06-2018 End: 06-22-2021 Screening mammography Inocencia Huitron Other Screening for malign ant neoplasm of breast Inocencia Elana Other Plan of Treatment Date Care Activity Detail Author Start: 09-22-2024 End: 09-22-2024 Patient encounter procedure 09/22/2024 9:30 AM EST Office Visit [facility] [address] [place] [address] Jason Granda MD [address] [place] [address] [facility] Start: 05-11-2024 Influenza vaccination Influenza Vaccine (#1) [facility] Start: 2013 Screening for malignant neoplasm of breast Mammogram [facility] Start: 2003 Screening for malignant neoplasm of cervix [facility] Start: 1994 Screening for malignant neoplasm of cervix Pap Smear [facility] Start: 1975 Screening for malignant neoplasm of colon [facility] MG Breast - bilatera l Screening [facility] US Thyroid gland [facility] Payers Date Payer Category Payer Private Health Insurance [id number] 2023 Private Health Insurance [id number] 2023 Medicaid [id number] 2. [id number] 2023 Self-pay [id number] 1975 Unknown [id number] 2.16.84 [id number] 1975 Unknown [id number] 2.16.84 [id number] 1975 Unknown [id number] 2.16.84 [id number] 1975 Unknown [id number] 2.16.84 [id number] 1975 Unknown [id number] 2.16.84 [id number] 1975 Unknown [id number] 2.16.84 [id number] 1975 Unknown [id number] 2.16.84 [id number] 1975 Unknown [id number] 2.16.84 [id number] 1959 Unknown [id number] Unknown [id number] 2.16.8 [id number] Social History Date Type Detail Facility Tobacco smoking status VAIS Unknown if ever smoked [facility] Start: 1975 Sex Assigned At Female F [facility] Start: 2024 Sex Assigned At N [employer] Other Start: 2024 Tobacco smoking status VAIS Smokes tobacco daily [facility] History of tobacco use Cigarette Smoker [facility] Start: 2024 History of Social function [facility] Start: 1975 Sex assigned at Not on file N [facility] Tobacco smoking status VAIS Unknown if ever smoked [facility] Work Phone: Start: 07-21-2024 Sex Female (finding) [facility] Procedure Code Equipment Code Equipment Origin al Text Equipment Identifier Dates [id number] Start: 02-21-2022 Clinical Notes 04-19-2023 to 07-15-2024 Telephone Encounter - Ravi Almanzar - 07/15/2024 1:27 PM ESTTelephone Encounter - Ravi Almanzar - 07/15/2024 1:27 PM ESTTelephone Encounter - Ravi Almanzar - 06/25/2024 10:42 AM EDT Note Date & Type Note Facility 07-15-2024 Telephone encounter Note Form atting of this note might be different from the original. Levemir and levothyroxine need refill to [facility] please and thank you! [facility] 07-15-2024 Miscellaneous Notes Formattin g of this note might be different from the original. Levemir and levothyroxine need refill to [facility] please and thank you! documented in this encounter [facility] 06-25-2024 Telephone encounter Note Form atting of this note might be different from the original. Patient states she's having nueropathy in left leg, cannot work. Would like a work excuse for time off. Please advise. [facility] 06-25-2024 Miscellaneous Notes Formattin g of this note might be different from the original. Patient states she's having nueropathy in left leg, cannot work. Would like a work excuse for time off. Please advise. Called to check on court paperwork. Please call her, thank you! documented in this encounter [facility] 06-25-2024 Telephone encounter Note Form atting of this note might be different from the original. Called to check on court paperwork. Please call her, thank you! [facility] 06-11-2024 Telephone encounter Note Form atting of this note might be different from the original. Pt states disability faxed request for records. Please followup and resend If already attempted. Pt also states pen needles needed paul. I sent a message about it on the 30, they need to know amt used per day. Please and thank you! [facility] 06-11-2024 Miscellaneous Notes Formattin g of this note might be different from the original. Pt states disability faxed request for records. Please followup and resend If already attempted. Pt also states pen needles needed paul. I sent a message about it on the 30, they need to know amt used per day. Please and thank you! documented in this encounter [facility] 10-11-2023 Evaluation note Encounter Date Diagnosis Assessment Notes Oct, Type 2 diabetes mellitus with hyperglycemia, unspecified whether nursing home insulin use (ICD-10 - E11.65) Pt requests referral to Dr. Weinstein for further help w diabetes. Oct, Acquired hypothyroidism (ICD-10 - E03.9) Due for labs and US Oct, Nausea and vomiting in adult (ICD-10 - R11.2) Zofran for short term use. Discussed likely related to her elevated glucose. [facility] Other 11-28-2023 Evaluation note* Encounter Date Diagnosis Assessment Notes Treatment Notes Treatment Clinical Notes Jul, Suspected COVID-19 virus infection (ICD-10 [...] with viral supportive care, rx of prednisone, [place], and Albuterol inhaler as directed, Tylenol as [...] treatment plan. Patient left in stable condition [facility] Other 09-14-2023 Evaluation note* Encounter Date Diagnosis Assessment Notes Treatment Notes Treatment Clinical Notes May, Chronic fatigue (ICD-10 - R53.82) Discussed differential. Will check labs today. May, Weight loss (ICD-10 - R63.4) Discussed differential. Will check labs today. May, Decreased appetite (ICD-10 - R63.0) Discussed differential. Will check labs today. May, Type 2 diabetes mellitus with hyperglycemia, unspecified whether director long term care insulin use (ICD-10 - E11.65) Diabetes typically uncontrolled. Refused to see Vance Yañez in the past. Obtain a1C May, Acquired hypothyroidism (ICD-10 - E03.9) Chronic problem, due for labs. May, Screening mammogram for breast cancer (ICD-10 - Z12.31) May, Acute cystitis without hematuria (ICD-10 - N30.00) Check UA w culture. [facility] Other 08-10-2023 Evaluation note* Encounter Date Diagnosis Assessment Notes Treatment Notes Treatment Clinical Notes Apr, Contact with and (suspected) exposure [...] cough (ICD-10 - R05.1) Chest x-ray negative [employer] [facility] Other Evaluation noteNo assessment information available [facility] note[facility] InformationNort [employer] Other Evaluation note* Diagnosis Diabetic neuropathy with neurologic complication (CMS/HCC) Type II or unspecified type diabetes mellitus with neurological manifestations, not stated as uncontrolled documented [facility] Diagnosis Onset Date Resolution Status Admit Date Screening mammogram for breast cancer acute July 21, 024 12:53pm Thyroid nodule acute July 112023 12:53pm [facility] Work Phone: History general Narrative - Reported* Type Description Date Medical History Diabetes Medical History diabetes mallitus Medical History Hypothyroid Medical History HTN (hypertension) Surgical History cholecystectomy Hospitalization History see above [employer] [facility] Other Summary Purpose Family History Relationship Condition Age at Onset Recorded Date/T ryanne father Diabetes mellitus Unknown Unknown Advance Directives Advance Directive Response Recorded Date/ Time Advance Directives No March 05 12:23pm Advance Directive Response Recorded Date/ Time Advance Directives No March 05 11:23am Reason for Referral Reason *FU 10/18 Will hav e our nurse call as well. Type 2 diabetes, hyperglycemia. Diagnosis 1 Type 2 diabetes bryant itus with hyperglycemia, unspecified whether nursing home insulin use (E11.65) Referral Organization [facility] Referring Provider First Name Mirna Referring Provider Last Name Darek Referring Provider Specialty Family [facility] Referred Organization [facility] Referred Provider EdyTeresa Referred Address ,[place], [place],[address] Referred Provider Specialty Family Medic ine Referral Priority Routine General Notes DominickMelanie curran 10:27:46 AM >received today, notes locked, attachments made, referral faxed. marked it as urgent when faxed Chief Complaint and Reason for Visit Chief Complaint Admit Date F/U Blood Pressure July 21, 2024 12:53pm Reason for Visit Admit Date Screening mammogram for breast cancer No vember 2023 12:53pm Thyroid nodule July 21, 2024 12:53pm Additional Source Comments Goals (unrecognized section and content) Goals may be documented in a n alternate sectionNo InformationGoals may be documented in an alternate sectionNo InformationNo InformationNo InformationNo InformationNo InformationNo InformationGoals may be documented in an alternate section INFORMATION SOURCE (unrecogn ized section and content) DATE CREATED AUTHOR 08/30/2021 [facility] DATE CREATED AUTHOR AUTHOR'S ORGANIZ ATION 04/28/2023 [facility] DATE CREATED AUTHOR AUTHOR'S ORGANIZ ATION 06/05/2024 [facility] dical Specialists EPIC REASON FOR VISIT (unrecogniz ed section and content) Reason Comments Med Change Request Care Teams (unrecognized sec tion and content) Team Status: Active Member Role Status Dates PHYSICIAN NO FAMILY Primary Care Provider Active Team Status: Inactive Member Role Status Dates PHYSICIAN NO FAMILY Primary Care Provider Active Inocencia Huitron APRN Attending Provider Active [employer] Relationship Specialty Start Date End Date Mirna Oswald MD [address] [place] [phone] PCP - General Family Medicine 04/29/24 [employer]mith Relationship Specialty Start Date End Date Mirna Oswald MD [address] [place] [phone] PCP - General Family Medicine 04/29/24 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 [facility]. provides no warranty or guarantee of the accuracy or completeness of information in this document.
== END 2024-08-04 10:51 | disposition home or self-care (01) ==
LOC: RAD 10:50
PROVIDERS: PCP Family Medicine; Visit Provider Family Medicine
DX: Z12.31 Encounter for screening mammogram for malignant neoplasm of breast (principal); E04.1 Nontoxic single thyroid nodule
CPT/HCPCS: 76536; 77063; 77067